=== PATIENT | male | born 1950 | race Caucasian/White ===

== ENCOUNTER 2020-06-01 20:58 | Emergency (ER) | payer OTHER, MEDICARE, SELFPAY ==
[2020-06-01] VITALS (9 sets, daily range): BP systolic 160–193; BP diastolic 67–112; PULSE 74–122; RESP 13–25; TEMP 37.2; O2SAT 15–100; BMI 31.0
--- NOTE | 2020-06-01 20:59 | CTR_ITS ---
PROCEDURE INFORMATION: Exam: CT Head Without Contrast Exam date and time: 06/01/2020 9:14 PM Age: 69 years old Clinical indication: Injury or trauma; Fall; Initial encounter; Blunt trauma (contusions or hematomas); Consciousness not specified; Injury date: 06/01/2020; Injury details: A known carbon dioxide poison, PT was working on tractor when he fell and hit his head, could not move, found him vomiting; Additional info: AMS TECHNIQUE: Imaging protocol: Computed tomography of the head without contrast. Radiation optimization: All CT scans at this facility use at least one of these dose optimization techniques: automated exposure control; mA and/or kV adjustment per patient size (includes targeted exams where dose is matched to clinical indication); or iterative reconstruction. COMPARISON: No relevant prior studies available. RADIATION DOSE METRICS: Total DLP (mGy-cm): 1650.53 FINDINGS: Brain: Normal. No hemorrhage. Unremarkable white matter. No mass effect. Ventricles: Normal. No ventriculomegaly. Bones/joints: Unremarkable. No acute fracture. Sinuses: Visualized sinuses are unremarkable. No fluid levels. Mastoid air cells: Visualized mastoid air cells are well aerated. Soft tissues: Unremarkable. CT/CT head wo con* [id number] IMPRESSION: Negative for intracranial hemorrhage or mass effect. Radiation Dose CTDIVOL = (mGy): DLP = 1650.53 (mGy-cm)
--- NOTE | 2020-06-01 20:59 | CTR_ITS ---
PROCEDURE INFORMATION: Exam: CT Cervical Spine Without Contrast Exam date and time: 06/01/2020 9:14 PM Age: 69 years old Clinical indication: Injury or trauma; Fall; Initial encounter; Blunt trauma; Injury date: 06/01/20; Injury details: A known carbon dioxide poison, PT was working on tractor when he fell and hit his head, could not move, found him vomiting; Additional info: Pain TECHNIQUE: Imaging protocol: Computed tomography images of the cervical spine without contrast. Radiation optimization: All CT scans at this facility use at least one of these dose optimization techniques: automated exposure control; mA and/or kV adjustment per patient size (includes targeted exams where dose is matched to clinical indication); or iterative reconstruction. COMPARISON: No relevant prior studies available. RADIATION DOSE METRICS: Total DLP (mGy-cm): 803.08 FINDINGS: Vertebrae: No acute fracture. Normal alignment. C2-C3: No significant disc protrusion. No severe spinal canal stenosis. No significant neural foraminal narrowing. C3-C4: No significant disc protrusion. No severe spinal canal stenosis. No significant neural foraminal narrowing. C4-C5: No significant disc protrusion. No severe spinal canal stenosis. No significant neural foraminal narrowing. C5-C6: No significant disc protrusion. No severe spinal canal stenosis. No significant neural foraminal narrowing. C6-C7: No significant disc protrusion. No severe spinal canal stenosis. No significant neural foraminal narrowing. C7-T1: No significant disc protrusion. No severe spinal canal stenosis. No significant neural foraminal narrowing. Soft tissues: Unremarkable. Lungs: Lung apices are normal. CT/CT cervical spin wo con* [id number] IMPRESSION: Negative for fracture or dislocation. Radiation Dose CTDIVOL = (mGy): DLP = 803.08 (mGy-cm)
--- NOTE | 2020-06-01 20:59 | XRR_ITS ---
PROCEDURE INFORMATION: Exam: XR Chest, 1 View Exam date and time: 06/01/2020 9:16 PM Age: 69 years old Clinical indication: Other: Dizziness, vomiting poss carbon monoxide poison; Patient HX: Poss carbon monoxide poison. Ams/dizziness/vomiting TECHNIQUE: Imaging protocol: XR of the chest Views: 1 view. COMPARISON: No relevant prior studies available. FINDINGS: Lungs: Low lung volumes. Interstitial crowding versus underlying interstitial thickening on a chronic basis. Minor opacities of the lower lungs. Pleural space: Unremarkable. No pleural effusion. No pneumothorax. Heart/Mediastinum: Accentuation of the cardiac silhouette which could be in part on the basis of AP technique. Bones/joints: Degenerative change of thoracic spine. XR/XR chest 1V portable [id number] IMPRESSION: 1. Accentuation of the interstitium which could be on the basis of crowding, chronic component of interstitial thickening or less likely vascular congestion. 2. Areas of atelectasis or scarring versus pneumonitis lower lungs.
[2020-06-01] MEDS: sodium chloride 0.9% 1,000 ML 100 ML IV (21:00)
--- NOTE | 2020-06-01 21:00 | ECG_ITS ---
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 Measurements Intervals [place] Rate: 80 P: 42 AK: 130 QRS: -30 QRSD: 92 T: 23 QT: 372 QTc: 430 Interpretive Statements SINUS RHYTHM WITH SINUS ARRHYTHMIA BORDERLINE LEFT AXIS DEVIATION [QRS AXIS < -20] No previous ECG available for comparison Electronically Signed On 06-02-2020 16:25:48 CDT by Jourdan Lopez M.D. [id number]
[2020-06-01 21:11] LABS: ABG PCO2 29.4 mmHg (35-45); ABG PH Result 7.47 (7.35-7.45); Arterial Blood Gas Hematocrit 42.7 % (42-52); Base Excess ABG -1.4 mmol/L (-2.0-2.0); Blood Gas Allen Test Pos; Blood Gas Sample Site Radial, right; Blood Gas Sample Type Arterial; Carboxyhemoglobin 32.3 %THgb (0.4-20.1); HCO3 ABG 21.2 mmol/L (22-26); HGB O2 Sat 67.9 % (95-100); Ionized Calcium Level - ABG 1.2 mmol/L (1.1-1.4); Methemoglobin 0.6 % (0.4-1.5); Oxygen Device NRB; Potassium Level - ABG 3.8 mmol/L (3.5-5.0); Total Hemoglobin 13.9 g/dL (14-18)
--- NOTE | 2020-06-01 21:22 | W.ED.GENADLT ---
HPI - General Adult General: Chief complaint: General Medical Stated complaint: Poss Carbon Monoxide Poison Time Seen by Provider: 06/01/20 20:59 Source: patient, family and EMS Mode of arrival: EMS Limitations: altered mental status History of Present Illness: HPI narrative: Jose is a 69-year-old male brought in by EMS with report of altered mental status. The patient by report called his stating he felt dizzy and nauseated while he was in his garage working on a tractor. His found him altered and apparently had been vomiting. It is believed that he was working on the tractor while it was running in an enclosed space for approximately 2 hours. EMS reports a GCS of 12. In route they were unable to establish an IV but did get a normal blood sugar and placed him on 2 L of nasal cannula oxygen. Review of Systems General: Reports: ROS unobtainable due to medical condition [facility] ED PFSH: Medical History (Updated 06/02/20 @ 00:08 by Alexa Ledesma) No pertinent past medical history Physical Exam Const: EXAM LIMITATIONS: altered mental status and other limitations GENERAL APPEARANCE: lethargic ORIENTATION/CONSCIOUSNESS: Yes lethargic HENMT: COMMON NORMALS: normocephalic, atraumatic, external ears normal, EAC's normal and Normal external nose present HEAD & SCALP: normal to inspection, normocephalic and atraumatic FACE & SINUS: normal facial exam and face symmetric NOSE: Normal external nose present and Normal nares present EXTERNAL EAR: Yes external ears normal EXTERNAL AUDITORY CANAL: EAC's normal MOUTH: Normal oral and palatal mucosa present, lip normal and tongue normal Eye: COMMON NORMALS: Equal, round and reactive pupils present and conjunctivae normal GENERAL EYE: appearance normal, both eyes and all related structures ALIGNMENT: Yes alignment normal PERIORBITAL: periorbital findings normal EYELID: eyelids normal CONJUNCTIVA: Yes conjunctivae normal SCLERA: sclerae normal PUPIL: Yes Equal, round and reactive pupils present Neck/C-Spine: COMMON NORMALS: full ROM, no lymphadenopathy, supple, no meningeal signs and no JVD GENERAL: Yes normal visual inspection and Yes trachea midline Chest: COMMONS NORMALS: normal inspection of the chest and normal palpation of entire chest wall Resp: EFFORT & INSPECTION: Yes uses accessory muscles AUSCULTATION: no crackles, no rales, no rhonchi, wheezes and diminished lung sounds Cardio: COMMON NORMALS: no JVD, regular rate, regular rhythm, S1 normal heart sound present and S2 normal heart sound present RATE: regular rate RHYTHM: regular rhythm HEART SOUNDS: S1 normal heart sound present, S2 normal heart sound present, no click, no gallops, no murmurs, no rubs and abnormal split S2 GI: COMMON NORMALS: Soft to palpation and No hepatosplenomegaly present PALPATION: Yes Soft to palpation, No Tenderness to palpation present (GI), No Guarding due to palpation present (GI), No Rigid due to palpation, Yes No hepatosplenomegaly present, No Hernia present, No Palpable mass present and No Pulsatile mass present : COMMON NORMALS: Yes no CVA tenderness BLADDER/KIDNEY EXAM: Yes no CVA tenderness Back/Pelvis: COMMON NORMALS: no CVA tenderness, thoracic and lumbar spine normal to inspection, no thoracic nor lumbar tenderness and thoraco-lumbar ROM normal Extremity: COMMON NORMALS: normal to inspection, full ROM, capillary refill normal, no joint enlargement, no clubbing, cyanosis or edema and no calf tenderness Neuro: MARY COMA SCALE: document GCS findings Mary coma scale eye opening: To pressure [place] coma scale verbal response: Confused Mary coma scale motor response: Localising [place] coma scale total score: 11 COMMON NORMALS: moves all extremities, no focal motor deficits and no sensory deficits noted SENSORIUM/ORIENTATION: Yes lethargic MENINGEAL SIGNS: Yes no meningeal signs Skin: COMMON NORMALS: no rashes or lesions noted, turgor normal, no jaundice, no petechiae and no mottling GENERAL SKIN EXAM: no rashes or lesions noted and turgor normal Course ED course: 2119 -[facility] who has hyperbaric oxygen treatment capability in [place] is on forced open and not taking transfers. 2130 -Case reviewed with [facility] and they do have the capability of treating a patient with carbon monoxide toxicity with hyperbaric oxygen. They will call back with the estimate clerk shortly for acceptance. 2139 - has called back and stated they cannot take the patient at this time as they have no critical care beds available. We will try [facility] in [place]. 2144 -[facility] has called back and states that we should try [facility] in [place] as they are closest other hospital that does hyperbaric oxygen therapy. 2152 -Case reviewed with Dr. Henry, on-call for pulmonology here. He confirms we do not have the capability of doing hyperbaric oxygen therapy. He states that the patient is improving, he is improving at this time, he recommends high flow nasal cannula oxygen at 100% and to hold off intubation. 2212 -patient is clinically improved. GCS is 14-15. Vital signs are stable. He is about to be placed on the high flow nasal cannula. is reviewing his information and we are working on transfer. 2229 -[facility] has turned us down for transfer. [facility] is going to transfer the patient and is sending a fixed wing to do so. At this time we are still awaiting 's official acceptance of the patient. 2352 -Case reviewed with Dr. Vazquez at [facility]. He is going to review the case again with the hyperbaric oxygen doctor. He believes they will will go ahead and accept the patient in transfer. [facility] is here at the ready to take the patient as soon as we have a formal accepting physician. 0003 -Case was again discussed with Dr. Vazquez. He has discussed the case with Dr. Mcdaniel and they will accept the patient at [facility]. Clinically the patient is stable vital signs, he has no pain. He denies any other complaints or injuries. His GCS is 14 taking 1 point off for confusion. His repeat lactate and blood gas are improved. Vital Signs: Vital signs: Vital Signs Temperature 98.9 F 06/01/20 21:09 Pulse Rate 81 06/01/20 23:53 Respiratory Rate 22 H 06/01/20 23:53 Blood Pressure 193/77 06/01/20 23:53 Pulse Oximetry 100 06/01/20 23:53 MDM - General Adult MDM Narrative: Medical decision making narrative: Jose is a 69-year-old male who had accidental carbon oxide poisoning. At this time he is greatly improved his GCS is up to 14 as he came in as an 11. He is going for hyperbaric oxygen therapy as his CO2 is greater than 25. The closest available hyperbaric oxygen therapy at this time is at [facility]. [facility] is here in order to take the patient. There is no evidence of cyanide toxicity and we cannot get a cyanide level here before the patient transfers. There is no other sign of trauma his head CT and C-spine CT are negative. Lab Data: Attestation: I reviewed the patient's lab results. Labs: Lab Results 06/01/20 06/01/20 06/01/20 Range/Units 21:00 21:03 21:03 WBC 10.3 H (4.0-10.0) 10^3/ uL RBC 4.58 (4.1-5.3) 10^6/u L Hgb 14.5 (11.7-16.6) g/dL Hct 43.5 (42.0-52.0) % MCV 95.0 H (80-94) fL MCH 31.7 (28.0-34.0) pg MCHC 33.3 (30.0-36.0) g/dL RDW 13.0 (12.1-15.1) % Plt Count 286 (130-400) 10^3/c mm MPV 11.2 H (7.4-10.4) fL Neut % (Auto) 63.6 % Lymph % (Auto) 25.4 % Grady % (Auto) 8.6 % Eos % (Auto) 1.3 % Baso % (Auto) 0.7 % Neut # (Auto) 6.55 (1.8-7.7) 10^3/u L Lymph # (Auto) 2.6 (0.8-4.8) 10^3/u L Grady # (Auto) 0.9 (0.2-0.9) 10^3/u L Eos # (Auto) 0.1 (0.0-0.8) 10^3/u L Baso # (Auto) 0.1 (0.0-0.1) 10^3/u L Nucleated RBC % (a uto) 0 % Nucleated RBCs # 0.0 /100WBC PT 12.80 (10.5-13.3) SECO NDS INR 0.93 (0.8-1.2) Specimen Type Arterial Sample Site Radial, right ABG pH 7.47 H (7.35-7.45) ABG pCO2 29.4 L (35-45) mmHg ABG pO2 321.0 H* (80.0-100.0) mmH g ABG HCO3 21.2 L (22-26) mmol/L ABG Base Excess -1.4 (-2.0-2.0) mmol/ L Octaviano Test Pos A-a O2 Gradient 0.0 L (5-10) mmHg Hematocrit 42.7 (42-52) % Hgb O2 Saturation 67.9 L (95-100) % Carboxyhemoglobin 32.3 H (0.4-20.1) %THgb Methemoglobin 0.6 (0.4-1.5) % Total Hemoglobin 13.9 L (14-18) g/dL Sodium 141.0 (131-143) mmol/L Potassium 3.8 (3.5-5.0) mmol/L Glucose 189.0 H (70-115) mg/dL Ionized Calcium 1.2 (1.1-1.4) mmol/L O2 Delivery Device Nrb O2 Liters/Min 15.0 % FiO2 % Associate Programmer Analyst ID [email or web address] Chloride (98-107) mmol/L Carbon Dioxide (22-29) mmol/L Anion Gap (5-19) BUN (8-23) mg/dL Creatinine (0.7-1.2) mg/dL GFR Calculation (90-130) mL/min Calculated Osmolal ity (285-295) mOsm/k g Lactic Acid (0.5-2.2) mmol/L Lactic Acid (Sepsi s) (0.5-2.2) mmol/L Calcium (8.5-10.5) mg/dL Magnesium (1.7-2.3) mg/dL Total Bilirubin (0.15-1.2) mg/dL AST (0-40) U/L ALT (0-41) U/L Alkaline Phosphata se (40-130) IU/L Ammonia (16-60) umol/L Creatine Kinase (39-308) U/L Troponin T Baselin e (0-15) ng/L Troponin T 120 Min [place] (0-15) ng/L Delta Troponin T (0-10) ABS# Total Protein (6.6-8.7) g/dL Albumin (3.5-5.2) g/dL Globulin (1.3-4.6) g/dL Urine Color (Yellow) Urine Appearance (CLEAR) Urine pH (5-7) Ur Specific Gravit y (1.005-1.030) Urine Protein (Negative) Urine Glucose (UA) (Normal) Urine Ketones (Negative) Urine Blood (Negative) Urine Nitrate (Negative) Urine Bilirubin (NEGATIVE) Urine Urobilinogen (Negative) mg/dL Ur Leukocyte Brit ase (Negative) Urine RBC (0-2) /hpf Urine WBC (0-5) /hpf Ur Squamous Epith Cells (0-5) Urine Bacteria (NONE) Urine Opiates Scre en (Negative) ng/mL Ur Barbiturates Sc reen (Negative) ng/mL Ur Phencyclidine S crn (Negative) ng/mL Ur Amphetamines Sc reen (Negative) ng/mL U Benzodiazepines Scrn (Negative) ng/mL Urine Cocaine Scre en (Negative) ng/mL U Marijuana (THC) Screen (Negative) ng/mL Ethyl Alcohol (0-10) mg/dL 06/01/20 06/01/20 06/01/20 Range/Units 21:03 21:03 21:03 WBC (4.0-10.0) 10^3/ uL RBC (4.1-5.3) 10^6/u L Hgb (11.7-16.6) g/dL Hct (42.0-52.0) % MCV (80-94) fL MCH (28.0-34.0) pg MCHC (30.0-36.0) g/dL RDW (12.1-15.1) % Plt Count (130-400) 10^3/c mm MPV (7.4-10.4) fL Neut % (Auto) % Lymph % (Auto) % Grady % (Auto) % Eos % (Auto) % Baso % (Auto) % Neut # (Auto) (1.8-7.7) 10^3/u L Lymph # (Auto) (0.8-4.8) 10^3/u L Grady # (Auto) (0.2-0.9) 10^3/u L Eos # (Auto) (0.0-0.8) 10^3/u L Baso # (Auto) (0.0-0.1) 10^3/u L Nucleated RBC % (a uto) % Nucleated RBCs # /100WBC PT (10.5-13.3) SECO NDS INR (0.8-1.2) Specimen Type Sample Site ABG pH (7.35-7.45) ABG pCO2 (35-45) mmHg ABG pO2 (80.0-100.0) mmH g ABG HCO3 (22-26) mmol/L ABG Base Excess (-2.0-2.0) mmol/ L Octaviano Test A-a O2 Gradient (5-10) mmHg Hematocrit (42-52) % Hgb O2 Saturation (95-100) % Carboxyhemoglobin (0.4-20.1) %THgb Methemoglobin (0.4-1.5) % Total Hemoglobin (14-18) g/dL Sodium 139 (131-143) mmol/L Potassium 4.0 (3.5-5.0) mmol/L Glucose 157 H (70-115) mg/dL Ionized Calcium (1.1-1.4) mmol/L O2 Delivery Device O2 Liters/Min % FiO2 % Associate Programmer Analyst ID [email or web address] 104 (98-107) mmol/L Carbon Dioxide 22 (22-29) mmol/L Anion Gap 17.0 (5-19) BUN 12 (8-23) mg/dL Creatinine 1.3 H (0.7-1.2) mg/dL GFR Calculation 54.7 L (90-130) mL/min Calculated Osmolal ity 287 (285-295) mOsm/k g Lactic Acid 2.5 H (0.5-2.2) mmol/L Lactic Acid (Sepsi s) (0.5-2.2) mmol/L Calcium 9.3 (8.5-10.5) mg/dL Magnesium 2.0 (1.7-2.3) mg/dL Total Bilirubin 0.5 (0.15-1.2) mg/dL AST 18 (0-40) U/L ALT 13 (0-41) U/L Alkaline Phosphata se 113 (40-130) IU/L Ammonia (16-60) umol/L Creatine Kinase 152 (39-308) U/L Troponin T Baselin e 6 (0-15) ng/L Troponin T 120 Min [place] (0-15) ng/L Delta Troponin T (0-10) ABS# Total Protein 7.4 (6.6-8.7) g/dL Albumin 4.4 (3.5-5.2) g/dL Globulin 3.0 (1.3-4.6) g/dL Urine Color (Yellow) Urine Appearance (CLEAR) Urine pH (5-7) Ur Specific Gravit y (1.005-1.030) Urine Protein (Negative) Urine Glucose (UA) (Normal) Urine Ketones (Negative) Urine Blood (Negative) Urine Nitrate (Negative) Urine Bilirubin (NEGATIVE) Urine Urobilinogen (Negative) mg/dL Ur Leukocyte Brit ase (Negative) Urine RBC (0-2) /hpf Urine WBC (0-5) /hpf Ur Squamous Epith Cells (0-5) Urine Bacteria (NONE) Urine Opiates Scre en (Negative) ng/mL Ur Barbiturates Sc reen (Negative) ng/mL Ur Phencyclidine S crn (Negative) ng/mL Ur Amphetamines Sc reen (Negative) ng/mL U Benzodiazepines Scrn (Negative) ng/mL Urine Cocaine Scre en (Negative) ng/mL U Marijuana (THC) Screen (Negative) ng/mL Ethyl Alcohol < 10 (0-10) mg/dL 06/01/20 06/01/20 06/01/20 Range/Units 21:03 23:07 23:07 WBC (4.0-10.0) 10^3/ uL RBC (4.1-5.3) 10^6/u L Hgb (11.7-16.6) g/dL Hct (42.0-52.0) % MCV (80-94) fL MCH (28.0-34.0) pg MCHC (30.0-36.0) g/dL RDW (12.1-15.1) % Plt Count (130-400) 10^3/c mm MPV (7.4-10.4) fL Neut % (Auto) % Lymph % (Auto) % Grady % (Auto) % Eos % (Auto) % Baso % (Auto) % Neut # (Auto) (1.8-7.7) 10^3/u L Lymph # (Auto) (0.8-4.8) 10^3/u L Grady # (Auto) (0.2-0.9) 10^3/u L Eos # (Auto) (0.0-0.8) 10^3/u L Baso # (Auto) (0.0-0.1) 10^3/u L Nucleated RBC % (a uto) % Nucleated RBCs # /100WBC PT (10.5-13.3) SECO NDS INR (0.8-1.2) Specimen Type Sample Site ABG pH (7.35-7.45) ABG pCO2 (35-45) mmHg ABG pO2 (80.0-100.0) mmH g ABG HCO3 (22-26) mmol/L ABG Base Excess (-2.0-2.0) mmol/ L Octaviano Test A-a O2 Gradient (5-10) mmHg Hematocrit (42-52) % Hgb O2 Saturation (95-100) % Carboxyhemoglobin (0.4-20.1) %THgb Methemoglobin (0.4-1.5) % Total Hemoglobin (14-18) g/dL Sodium (131-143) mmol/L Potassium (3.5-5.0) mmol/L Glucose (70-115) mg/dL Ionized Calcium (1.1-1.4) mmol/L O2 Delivery Device O2 Liters/Min % FiO2 % Associate Programmer Analyst ID Chloride (98-107) mmol/L Carbon Dioxide (22-29) mmol/L Anion Gap (5-19) BUN (8-23) mg/dL Creatinine (0.7-1.2) mg/dL GFR Calculation (90-130) mL/min Calculated Osmolal ity (285-295) mOsm/k g Lactic Acid (0.5-2.2) mmol/L Lactic Acid (Sepsi s) 1.4 (0.5-2.2) mmol/L Calcium (8.5-10.5) mg/dL Magnesium (1.7-2.3) mg/dL Total Bilirubin (0.15-1.2) mg/dL AST (0-40) U/L ALT (0-41) U/L Alkaline Phosphata se (40-130) IU/L Ammonia 65 H (16-60) umol/L Creatine Kinase (39-308) U/L Troponin T Baselin e (0-15) ng/L Troponin T 120 Min [place] 6.00 (0-15) ng/L Delta Troponin T 0 (0-10) ABS# Total Protein (6.6-8.7) g/dL Albumin (3.5-5.2) g/dL Globulin (1.3-4.6) g/dL Urine Color (Yellow) Urine Appearance (CLEAR) Urine pH (5-7) Ur Specific Gravit y (1.005-1.030) Urine Protein (Negative) Urine Glucose (UA) (Normal) Urine Ketones (Negative) Urine Blood (Negative) Urine Nitrate (Negative) Urine Bilirubin (NEGATIVE) Urine Urobilinogen (Negative) mg/dL Ur Leukocyte Brit ase (Negative) Urine RBC (0-2) /hpf Urine WBC (0-5) /hpf Ur Squamous Epith Cells (0-5) Urine Bacteria (NONE) Urine Opiates Scre en (Negative) ng/mL Ur Barbiturates Sc reen (Negative) ng/mL Ur Phencyclidine S crn (Negative) ng/mL Ur Amphetamines Sc reen (Negative) ng/mL U Benzodiazepines Scrn (Negative) ng/mL Urine Cocaine Scre en (Negative) ng/mL U Marijuana (THC) Screen (Negative) ng/mL Ethyl Alcohol (0-10) mg/dL 06/01/20 06/01/20 06/01/20 Range/Units 23:20 23:27 23:40 WBC (4.0-10.0) 10^3/ uL RBC (4.1-5.3) 10^6/u L Hgb (11.7-16.6) g/dL Hct (42.0-52.0) % MCV (80-94) fL MCH (28.0-34.0) pg MCHC (30.0-36.0) g/dL RDW (12.1-15.1) % Plt Count (130-400) 10^3/c mm MPV (7.4-10.4) fL Neut % (Auto) % Lymph % (Auto) % Grady % (Auto) % Eos % (Auto) % Baso % (Auto) % Neut # (Auto) (1.8-7.7) 10^3/u L Lymph # (Auto) (0.8-4.8) 10^3/u L Grady # (Auto) (0.2-0.9) 10^3/u L Eos # (Auto) (0.0-0.8) 10^3/u L Baso # (Auto) (0.0-0.1) 10^3/u L Nucleated RBC % (a uto) % Nucleated RBCs # /100WBC PT (10.5-13.3) SECO NDS INR (0.8-1.2) Specimen Type Arterial Sample Site Radial, right ABG pH 7.42 (7.35-7.45) ABG pCO2 35.9 (35-45) mmHg ABG pO2 534.0 H* (80.0-100.0) mmH g ABG HCO3 23.3 (22-26) mmol/L ABG Base Excess -0.8 (-2.0-2.0) mmol/ L Octaviano Test Pos A-a O2 Gradient 117.7 H (5-10) mmHg Hematocrit 43.1 (42-52) % Hgb O2 Saturation 93.5 L (95-100) % Carboxyhemoglobin 6.3 (0.4-20.1) %THgb Methemoglobin 0.9 (0.4-1.5) % Total Hemoglobin 14.0 (14-18) g/dL Sodium 141.0 (131-143) mmol/L Potassium 4.2 (3.5-5.0) mmol/L Glucose 133.0 H (70-115) mg/dL Ionized Calcium 1.2 (1.1-1.4) mmol/L O2 Delivery Device O2 Liters/Min 70.0 % FiO2 100.0 % Associate Programmer Analyst ID [email or web address] Chloride (98-107) mmol/L Carbon Dioxide (22-29) mmol/L Anion Gap (5-19) BUN (8-23) mg/dL Creatinine (0.7-1.2) mg/dL GFR Calculation (90-130) mL/min Calculated Osmolal ity (285-295) mOsm/k g Lactic Acid 1.4 (0.5-2.2) mmol/L Lactic Acid (Sepsi s) (0.5-2.2) mmol/L Calcium (8.5-10.5) mg/dL Magnesium (1.7-2.3) mg/dL Total Bilirubin (0.15-1.2) mg/dL AST (0-40) U/L ALT (0-41) U/L Alkaline Phosphata se (40-130) IU/L Ammonia (16-60) umol/L Creatine Kinase (39-308) U/L Troponin T Baselin e (0-15) ng/L Troponin T 120 Min [place] (0-15) ng/L Delta Troponin T (0-10) ABS# Total Protein (6.6-8.7) g/dL Albumin (3.5-5.2) g/dL Globulin (1.3-4.6) g/dL Urine Color Yellow (Yellow) Urine Appearance Clear (CLEAR) Urine pH 7 (5-7) Ur Specific Gravit y 1.010 (1.005-1.030) Urine Protein Neg (Negative) Urine Glucose (UA) Norm (Normal) Urine Ketones Negative (Negative) Urine Blood Neg (Negative) Urine Nitrate Negative (Negative) Urine Bilirubin Neg (NEGATIVE) Urine Urobilinogen Norm (Negative) mg/dL Ur Leukocyte Brit ase Negative (Negative) Urine RBC None (0-2) /hpf Urine WBC None (0-5) /hpf Ur Squamous Epith Cells None (0-5) Urine Bacteria None (NONE) Urine Opiates Scre en (Negative) ng/mL Ur Barbiturates Sc reen (Negative) ng/mL Ur Phencyclidine S crn (Negative) ng/mL Ur Amphetamines Sc reen (Negative) ng/mL U Benzodiazepines Scrn (Negative) ng/mL Urine Cocaine Scre en (Negative) ng/mL U Marijuana (THC) Screen (Negative) ng/mL Ethyl Alcohol (0-10) mg/dL 06/01/20 Range/Units 23:40 WBC (4.0-10.0) 10^3/ uL RBC (4.1-5.3) 10^6/u L Hgb (11.7-16.6) g/dL Hct (42.0-52.0) % MCV (80-94) fL MCH (28.0-34.0) pg MCHC (30.0-36.0) g/dL RDW (12.1-15.1) % Plt Count (130-400) 10^3/c mm MPV (7.4-10.4) fL Neut % (Auto) % Lymph % (Auto) % Grady % (Auto) % Eos % (Auto) % Baso % (Auto) % Neut # (Auto) (1.8-7.7) 10^3/u L Lymph # (Auto) (0.8-4.8) 10^3/u L Grady # (Auto) (0.2-0.9) 10^3/u L Eos # (Auto) (0.0-0.8) 10^3/u L Baso # (Auto) (0.0-0.1) 10^3/u L Nucleated RBC % (a uto) % Nucleated RBCs # /100WBC PT (10.5-13.3) SECO NDS INR (0.8-1.2) Specimen Type Sample Site ABG pH (7.35-7.45) ABG pCO2 (35-45) mmHg ABG pO2 (80.0-100.0) mmH g ABG HCO3 (22-26) mmol/L ABG Base Excess (-2.0-2.0) mmol/ L Octaviano Test A-a O2 Gradient (5-10) mmHg Hematocrit (42-52) % Hgb O2 Saturation (95-100) % Carboxyhemoglobin (0.4-20.1) %THgb Methemoglobin (0.4-1.5) % Total Hemoglobin (14-18) g/dL Sodium (131-143) mmol/L Potassium (3.5-5.0) mmol/L Glucose (70-115) mg/dL Ionized Calcium (1.1-1.4) mmol/L O2 Delivery Device O2 Liters/Min % FiO2 % Associate Programmer Analyst ID Chloride (98-107) mmol/L Carbon Dioxide (22-29) mmol/L Anion Gap (5-19) BUN (8-23) mg/dL Creatinine (0.7-1.2) mg/dL GFR Calculation (90-130) mL/min Calculated Osmolal ity (285-295) mOsm/k g Lactic Acid (0.5-2.2) mmol/L Lactic Acid (Sepsi s) (0.5-2.2) mmol/L Calcium (8.5-10.5) mg/dL Magnesium (1.7-2.3) mg/dL Total Bilirubin (0.15-1.2) mg/dL AST (0-40) U/L ALT (0-41) U/L Alkaline Phosphata se (40-130) IU/L Ammonia (16-60) umol/L Creatine Kinase (39-308) U/L Troponin T Baselin e (0-15) ng/L Troponin T 120 Min [place] (0-15) ng/L Delta Troponin T (0-10) ABS# Total Protein (6.6-8.7) g/dL Albumin (3.5-5.2) g/dL Globulin (1.3-4.6) g/dL Urine Color (Yellow) Urine Appearance (CLEAR) Urine pH (5-7) Ur Specific Gravit y (1.005-1.030) Urine Protein (Negative) Urine Glucose (UA) (Normal) Urine Ketones (Negative) Urine Blood (Negative) Urine Nitrate (Negative) Urine Bilirubin (NEGATIVE) Urine Urobilinogen (Negative) mg/dL Ur Leukocyte Brit ase (Negative) Urine RBC (0-2) /hpf Urine WBC (0-5) /hpf Ur Squamous Epith Cells (0-5) Urine Bacteria (NONE) Urine Opiates Scre en Negative (Negative) ng/mL Ur Barbiturates Sc reen Negative (Negative) ng/mL Ur Phencyclidine S crn Negative (Negative) ng/mL Ur Amphetamines Sc reen Negative (Negative) ng/mL U Benzodiazepines Scrn Negative (Negative) ng/mL Urine Cocaine Scre en Negative (Negative) ng/mL U Marijuana (THC) Screen Negative (Negative) ng/mL Ethyl Alcohol (0-10) mg/dL Imaging Data^: CXR: My impression: No acute cardiopulmonary findings. CT Head: Radiologist's impression: [place] [address] CT Scan Report Signed Patient: Jose Diana Unit #: [id number] : [id number] Age/Sex: 69 / M ADM Date: 06/01/20 Loc: ER Room/Bed: Attending Dr: Ordering Provider/Ordering MD: Alexa Ledesma DO Date of Service: 06/01/20 Procedure(s): CT head wo con* [id number] Accession Number(s): [id number] Report Number: [id number] PROCEDURE INFORMATION: Exam: CT Head Without Contrast Exam date and time: 06/01/2020 9:14 PM Age: 69 years old Clinical indication: Injury or trauma; Fall; Initial encounter; Blunt trauma (contusions or hematomas); Consciousness not specified; Injury date: 06/01/2020; Injury details: A known carbon dioxide poison, PT was working on tractor when he fell and hit his head, could not move, found him vomiting; Additional info: AMS TECHNIQUE: Imaging protocol: Computed tomography of the head without contrast. Radiation optimization: All CT scans at this facility use at least one of these dose optimization techniques: automated exposure control; mA and/or kV adjustment per patient size (includes targeted exams where dose is matched to clinical indication); or iterative reconstruction. COMPARISON: No relevant prior studies available. RADIATION DOSE METRICS: Total DLP (mGy-cm): 1650.53 FINDINGS: Brain: Normal. No hemorrhage. Unremarkable white matter. No mass effect. Ventricles: Normal. No ventriculomegaly. Bones/joints: Unremarkable. No acute fracture. Sinuses: Visualized sinuses are unremarkable. No fluid levels. Mastoid air cells: Visualized mastoid air cells are well aerated. Soft tissues: Unremarkable. CT/CT head wo con* [id number] IMPRESSION: Negative for intracranial hemorrhage or mass effect. Radiation Dose CTDIVOL = (mGy): DLP = 1650.53 (mGy-cm) Dictated By: Donal Johnson MD Signed By: Donal Johnson MD Signed Date/Time: 06/01/202137 DD/ 36 CT Cervical Spine: Radiologist's impression: [address] [address] [address] Scan Report Signed Patient: Jose Diana Unit #: [id number] : [id number] Age/Sex: 69 / M ADM Date: 06/01/20 Loc: ER Room/Bed: Attending Dr: Ordering Provider/Ordering MD: Alexa Ledesma DO Date of Service: 06/01/20 Procedure(s): CT cervical spin wo con* [id number] Accession Number(s): [id number] Report Number: [id number] PROCEDURE INFORMATION: Exam: CT Cervical Spine Without Contrast Exam date and time: 06/01/2020 9:14 PM Age: 69 years old Clinical indication: Injury or trauma; Fall; Initial encounter; Blunt trauma; Injury date: 06/01/20; Injury details: A known carbon dioxide poison, PT was working on tractor when he fell and hit his head, could not move, found him vomiting; Additional info: Pain TECHNIQUE: Imaging protocol: Computed tomography images of the cervical spine without contrast. Radiation optimization: All CT scans at this facility use at least one of these dose optimization techniques: automated exposure control; mA and/or kV adjustment per patient size (includes targeted exams where dose is matched to clinical indication); or iterative reconstruction. COMPARISON: No relevant prior studies available. RADIATION DOSE METRICS: Total DLP (mGy-cm): 803.08 FINDINGS: Vertebrae: No acute fracture. Normal alignment. C2-C3: No significant disc protrusion. No severe spinal canal stenosis. No significant neural foraminal narrowing. C3-C4: No significant disc protrusion. No severe spinal canal stenosis. No significant neural foraminal narrowing. C4-C5: No significant disc protrusion. No severe spinal canal stenosis. No significant neural foraminal narrowing. C5-C6: No significant disc protrusion. No severe spinal canal stenosis. No significant neural foraminal narrowing. C6-C7: No significant disc protrusion. No severe spinal canal stenosis. No significant neural foraminal narrowing. C7-T1: No significant disc protrusion. No severe spinal canal stenosis. No significant neural foraminal narrowing. Soft tissues: Unremarkable. Lungs: Lung apices are normal. CT/CT cervical spin wo con* [id number] IMPRESSION: Negative for fracture or dislocation. Radiation Dose CTDIVOL = (mGy): DLP = 803.08 (mGy-cm) Dictated By: Donal Johnson MD Signed By: Doanl Johnson MD Signed Date/Time: 06/01/202138 DD/ 37 EKG Data^: EKG 2: Attestation: I personally reviewed and interpreted this EKG as follows: EKG interpretation date: 06/02/20 EKG interpretation time: 23:33 Interpretation: Normal sinus rhythm at 70 beats a minute, no acute ST-T wave changes. Unchanged from previous. Computer generated interpretation: Cervical Spine CT 06/01/20 20:59 IMPRESSION: Negative for fracture or dislocation. Radiation Dose CTDIVOL = (mGy): DLP = 803.08 (mGy-cm) Head CT 06/01/20 20:59 IMPRESSION: Negative for intracranial hemorrhage or mass effect. Radiation Dose CTDIVOL = (mGy): DLP = 1650.53 (mGy-cm) Discharge Plan Discharge Patient Disposition: Xfer Short-Term Hosp Clinical Impression: Carbon monoxide poisoning Qualifiers: Encounter type: initial encounter Injury intent: accidental or unintentional Qualified Code(s): T58.91XA - Toxic effect of carbon monoxide from unspecified source, accidental (unintentional), initial encounter Condition: Stable Referrals: Jeremi Talavera Jr, MD [Primary Care Provider] - Coding Level of Care Code ED Airplane Flight Attendant Supervisor for Chg Fwd Exam Comprehensive
[2020-06-01 21:23] LABS: Basophils # 0.1 10^3/uL (0.0-0.1); Basophils % 0.7 %; Eosinophils # 0.1 10^3/uL (0.0-0.8); Eosinophils % 1.3 %; Hematocrit 43.5 % (42.0-52.0); Hemoglobin 14.5 g/dL (11.7-16.6); Lymphocytes # 2.6 10^3/uL (0.8-4.8); Lymphocytes % 25.4 %; Mean Corpuscular HGB Conc 33.3 g/dL (30.0-36.0); Mean Corpuscular Hemoglobin 31.7 pg (28.0-34.0); Mean Platelet Volume 11.2 fL (7.4-10.4); Monocytes # 0.9 10^3/uL (0.2-0.9); Monocytes % 8.6 %; Neutrophils # 6.55 10^3/uL (1.8-7.7); Neutrophils % 63.6 %; Nucleated Red Blood Cells % 0 %; Platelet Count 286 10^3/cmm (130-400); Red Blood Count 4.58 10^6/uL (4.1-5.3); White Blood Count 10.3 10^3/uL (4.0-10.0)
[2020-06-01 21:27] LABS: Lactic Sepsis W/Reflex 2.5 mmol/L (0.5-2.2)
[2020-06-01 21:28] LABS: Alanine Aminotransferase 13 U/L (0-41); Albumin Level 4.4 g/dL (3.5-5.2); Alkaline Phosphatase 113 IU/L (40-130); Aspartate Amino Transferase 18 U/L (0-40); Blood Urea Nitrogen 12 mg/dL (8-23); Calcium 9.3 mg/dL (8.5-10.5); Carbon Dioxide 22 mmol/L (22-29); Chloride 104 mmol/L (98-107); Creatine Phosphokinase 152 U/L (39-308); Creatinine Clr Calc Pharmacy 61.0794; Glomerular Filtration Rate 54.7 mL/min (90-130); Glucose 157 mg/dL (65-115); Osmolality Calculated 287 mOsm/kg (285-295); Sodium 139 mmol/L (136-145); Total Bilirubin 0.5 mg/dL (0.15-1.2); Total Protein 7.4 g/dL (6.6-8.7)
[2020-06-01 21:29] LABS: Alcohol Level < 10 mg/dL (0-10)
[2020-06-01 21:30] LABS: Ammonia 65 umol/L (16-60)
[2020-06-01 21:31] LABS: Troponin(5th) Baseline 6 ng/L (0-15)
--- NOTE | 2020-06-01 21:40 | PC.NURSE ---
PT WAS ABLE TO RESPOND TO NURSING STAFF APPROX 5MIN AFTER ARRIVAL TO FACILITY. O2 WAS APPLIED VIA NON-REBREATHER AT THE TIME OF ARRIVAL. PT IS ALERT AND ORIENTED AND ABLE TO ANSWERE ALL QUESTIONS APPROPRIATLY AT THIS TIME. PT HAS NO NEURO DEFFICETS.
--- NOTE | 2020-06-01 21:42 | PC.NURSE ---
IS AT BEDSIDE AND TALKING WITH PT. PT HAS BEEN TO CT AND TOLERATES WELL. PT CONT TO ANSWER ALL QUESTIONS APPROPRIATELY AND MOVES ALL EXTREMITIES, NO NEURO SYMPTOMS NOTED AT THIS TIME. O2 REMAINS ON VIA NON-REBREATHER AT THE MAX O2 CONCENTRATION.
[2020-06-01 22:17] LABS: INR 0.93 (0.8-1.2)
[2020-06-01 22:53] LABS: Reflex Lactate Order REFLEX LACTIC ORDERD
--- NOTE | 2020-06-01 23:00 | ECG_ITS ---
[facility] Test Date: 2020-06-01 Pat Name: Jose Diana Department: Room: Gender: Male Linotyper: : 1950 Requested By: Alexa Garrett Order Number: [id number] Lawrence MD: Jourdan Lopez M.D. Measurements Intervals [place] Rate: 78 P: 63 [place]: 158 QRS: -59 QRSD: 87 T: 54 QT: 379 QTc: 433 Interpretive Statements SINUS RHYTHM LEFT AXIS DEVIATION [QRS AXIS < -30] Compared to ECG 06/01/2020 21:14:27 Sinus arrhythmia no longer present Electronically Signed On 06-02-2020 16:31:36 CDT by Jourdan Lopez M.D. [email or web address] rehabilitation centerLiveBuzzfostoria city hospitalMozzo Analytics/store/OM/[id number]
[2020-06-01 23:28] LABS: Lactic Acid level (Lactate) 1.4 mmol/L (0.5-2.2)
[2020-06-01 23:30] LABS: Troponin 5 2HR Delta 0 ABS# (0-10)
[2020-06-01] MEDS: sodium chloride 0.9% 1,000 ML 999 ML IV (23:32)
[2020-06-01 23:33] LABS: ABG PCO2 35.9 mmHg (35-45); ABG PH Result 7.42 (7.35-7.45); Alveolar-Arterial Oxygen Gradi 117.7 mmHg (5-10); Arterial Blood Gas Hematocrit 43.1 % (42-52); Base Excess ABG -0.8 mmol/L (-2.0-2.0); Blood Gas Allen Test Pos; Blood Gas Sample Site Radial, right; Blood Gas Sample Type Arterial; Carboxyhemoglobin 6.3 %THgb (0.4-20.1); HCO3 ABG 23.3 mmol/L (22-26); HGB O2 Sat 93.5 % (95-100); Ionized Calcium Level - ABG 1.2 mmol/L (1.1-1.4); Methemoglobin 0.9 % (0.4-1.5); Potassium Level - ABG 4.2 mmol/L (3.5-5.0)
[2020-06-01 23:50] LABS: Lactic Sepsis W/Reflex 1.4 mmol/L (0.5-2.2)
[2020-06-02 00:06] LABS: Amphetamines Screen Urine Negative (Negative); Barbiturates Screen Urine Negative (Negative); Benzodiazepines Screen Urine Negative (Negative); Bilirubin Urine Neg (NEGATIVE); Blood Urine Neg (Negative); Cocaine Screen Urine Negative (Negative); Glucose Urine UA Norm (Normal); Ketones Urine Negative (Negative); Leukocyte Esterase Urine Negative (Negative); Nitrate Urine Negative (Negative); Opiate Screen Urine Negative (Negative); PCP Screen Urine Negative (Negative); Protein Urine Neg (Negative); THC Screen Urine Negative (Negative); Urine Appearance Clear (CLEAR); Urine Color Yellow (Yellow); Urobilinogen Urine Norm (Negative); pH Urine 7 (5-7)
== END 2020-06-02 00:46 | disposition short-term general hospital (02) ==
PROVIDERS: Emergency Provider Emergency Medicine; PCP Family Medicine
DX: T58.91XA Toxic effect of carbon monoxide from unspecified source, accidental (unintentional), initial encounter (principal)
CPT/HCPCS: 12345; 36415; 36600; 70450; 71045; 72125; 80051; 80053; 80306; 80307; 81001; 82140; 82550; 82810; 83605; 83735; 83986; 84484; 85025; 85610; 93005; 96360; 96361; 99284; 99291; J7030

== ENCOUNTER 2021-12-16 19:26 | Inpatient (IN) | payer OTHER, MEDICARE, SELFPAY ==
--- NOTE | 2021-12-16 19:26 | W.ED.SOB ---
HPI - SOB/Dyspnea General: Chief Complaint: ER Hold Stated Complaint: sob Time Seen by Provider: 12/16/21 19:26 History of Present Illness: HPI Narrative: Mr Diana is a 71-year-old gentleman without significant past medical history presents to the emergency department due to shortness of breath. The patient himself largely denies specific complaints however perhaps mild increased shortness of breath over the past 5 days. Onset of symptoms was gradual. Course has been worsening. Intensity is now moderate to severe. He did receive a home albuterol treatment with perhaps mild relief. He denies history of asthma or tobaccoism. Denies history of known lung disease. He denies other infectious symptoms, has not had chest pain, has been eating drinking normally, and does not feel that he is more swollen than normal. No other specific changes in health, exacerbating, relieving factors identified. EMS found the patient grunting with increased work of breathing including tachypnea and hypoxemia on room air with oxygen saturation approximately 80%. Additionally family noted that the patient was mildly slow to respond at that time. Patient denies any new neurologic symptoms. Patient has not been vaccinated against Covid. Denies sick contacts. Only other provided history is that the patient does have a history of carbon monoxide poisoning and required hyperbaric oxygen however that was about a year ago. No known CO exposure recently. Onset (ago): day(s) Timing: constant and progressively worsening Severity: moderate Exacerbating factors: exertion Relieving factors: nothing Review of Systems General: Reports: 10 or more systems reviewed and unremarkable except in HPI and below [facility] ED PFSH: Medical History No pertinent past medical history Surgical History No significant past surgical history Social History Smoking and tobacco status: never smoked Physical Exam Const: COMMON NORMALS: patient oriented x3 and alert GENERAL APPEARANCE: cooperative, well developed, in distress (Increased work of breathing, supplemental oxygen in place.) and ill appearing (mildly); not lethargic ORIENTATION/CONSCIOUSNESS: not lethargic HENMT: COMMON NORMALS: normocephalic and atraumatic HEAD & SCALP: normocephalic and atraumatic THROAT: posterior oropharynx normal Eye: COMMON NORMALS: conjunctivae normal CONJUNCTIVA: Yes conjunctivae normal SCLERA: sclerae normal Neck/C-Spine: COMMON NORMALS: supple GENERAL: Yes trachea midline Resp: EFFORT & INSPECTION: Yes able to speak in complete sentences, Yes tachypneic and No stridor AUSCULTATION: no crackles, no rales, rhonchi (mild, at bases) and no wheezes Cardio: COMMON NORMALS: regular rhythm RATE: tachycardic RHYTHM: regular rhythm OTHER: Normal peripheral perfusion. No peripheral edema. GI: COMMON NORMALS: Soft to palpation PALPATION: Yes Soft to palpation and No Tenderness to palpation present (GI) PERCUSSION: normal to percussion Extremity: GENERAL: Yes normal exam except as noted and No edema Neuro: COMMON NORMALS: patient oriented x3, moves all extremities, no focal motor deficits and no sensory deficits noted SENSORIUM/ORIENTATION: Yes alert and No lethargic Psych: COMMON NORMALS: mental status grossly normal and Normal thought process present THOUGHT PROCESS: Normal thought process present Course ED course: - Patient was seen and evaluated by me at bedside - Patient placed on cardiac monitors, IV access obtained - Initial evaluation notable for exam as above, patient has new oxygen requirement and becomes markedly tachypneic and develops moderate to severe respiratory distress when oxygen not present - Labs notable for no leukocytosis. Metabolic panel with evidence of dehydration, other findings consistent with likely COVID-19. Procalcitonin is negative. Covid test is positive. - Imaging notable for Persistent or recurrent fine reticular pulmonary opacity since 06/01/2020. Possible chronic interstitial lung disease, recurrent edema or less likely infection. - Upon serial reexamination after treatment the patient was mildly improved with heated high flow oxygen - Apparently, the patient is adamantly against intubation/mechanical ventilation and also the typically given antiviral - Based on patient history, evaluation, labs, and imaging as interpreted the most likely cause of the patient's condition is COVID-19 - The results of ED evaluation were discussed with the patient including plan for admission due to requirement for level of care not available if discharged to prevent significant worsening/deterioration. - Hospitalist service contacted and agreed admit patient. - Patient was admitted without further deterioration or significant events. Note: Click bubbles or prepopulated quinteros in note writing are used for assistance with data collection and billing and are inherently more limited than narrative and other text portions of this note. Please use narrative for additional clinical history and defer to narrative/free test for any case of contradictory information. If information appears in only free text or click bubble it should be considered present or absent as reported. Please contact note medical writer for clarifications of clinical information or contradictory information. MDM is a brief summary, contradictory or erroneous seeming information should be clarified and full note should be reviewed. Vital Signs: Vital signs: Vital Signs Temperature 98.1 F 12/21/21 20:00 Pulse Rate 75 12/21/21 20:07 Respiratory Rate 20 H 12/21/21 20:01 Blood Pressure 144/82 12/21/21 20:00 Pulse Oximetry 90 12/21/21 20:01 MDM - SOB/Dyspnea Medical Decision Making 71-year-old gentleman presenting with respiratory distress found to have Covid. Patient initially on 15 L nonrebreather and switched to heated high flow oxygen with mild improvement. Patient is critically ill with acute hypoxic respiratory failure secondary to Covid. Patient admitted for further management Medical Records I reviewed the patient's medical records. Lab Data I reviewed the patient's lab results. : 12/21/21 05:51 12/21/21 05:51 Labs/Radiology: Radiology Impressions Chest X-Ray 12/16/21 19:33 IMPRESSION: Persistent or recurrent fine reticular pulmonary opacity since 06/01/2020. Possible chronic interstitial lung disease, recurrent edema or less likely infection. Abdomen/Pelvis CT 12/18/21 18:16 IMPRESSION: 1. Negative for acute abdominopelvic pathology. 2. Nonspecific lower lung ground-glass airspace. 3. No specific cause of hematuria identified. 4. Imaging features can be seen with COVID-19 pneumonia, though are nonspecific and can occur with a variety of infectious and noninfectious processes. (Reference: Josiah) REFERENCES: Josiah Eckert, et al., Radiological Society of [place] Expert Consensus Statement on Reporting Chest CT Findings Related to COVID-19. Endorsed by the Society of Thoracic Radiology, the [place] [employer], and RSNA. Published February 05, 2020. Laboratory Results WBC 5.4 10^3/uL (4.0-10.0) 12/16/21 19:42 RBC 4.42 10^6/uL (4.1-5.3) 12/16/21 19:42 Hgb 13.3 g/dL (11.7-16.6) 12/16/21 19:42 Hct 40.3 % (42.0-52.0) L 12/16/21 19: MCV 91.2 fl (80-94) 12/16/21 19:42 MCH 30.1 pg (28.0-34.0) 12/16/21 19: MCHC 33.0 g/dL (30.0-36.0) 12/16/21 19: RDW 13.2 % (12.1-15.1) 12/16/21 19:42 Plt Count 158 10^3/cmm (130-400) 12/16/21 19: MPV 11.0 fL (7.4-10.4) H 12/16/21 19: Neut % (Auto) 88.1 % 12/16/21 19: Lymph % (Auto) 6.3 % 12/16/21 19: [place] % (Auto) 5.4 % 12/16/21 19: Eos % (Auto) 0.0 % 12/16/21 19: Baso % (Auto) 0.0 % 12/16/21: Neut # (Auto) 4.76 10^3/uL (1.8-7.7) 12/16/21: Lymph # (Auto) 0.3 10^3/uL (0.8-4.8) L 12/16/21 19:42 [place] # (Auto) 0.3 10^3/uL (0.2-0.9) 12/16/21: Eos # (Auto) 0.0 10^3/uL (0.0-0.8) 12/16/21: Baso # (Auto) 0.0 10^3/uL (0.0-0.1) 12/16/21: Nucleated RBC % (auto) 0 % 12/16/21: Nucleated RBCs # 0.0 /100WBC 12/16/21 19: Specimen Type Arterial 12/16/21 20:16 Sample Site Radial, right 12/16/21 20:16 ABG pH 7.47 (7.35-7.45) H 12/16/21 20:16 ABG pCO2 28.7 mmHg (35-45) L 12/16/21 20:16 ABG pO2 58.0 mmHg (80.0-100.0) L 12/16/21 20:16 ABG HCO3 20.9 mmol/L (22-26) L 12/16/21 20:16 ABG Base Excess -1.7 mmol/L (-2.0-2.0) 12/16/21 20:16 Octaviano Test Pos 12/16/21 20:16 Hematocrit 41.3 % (42-52) L 12/16/21 20:16 Hgb O2 Saturation 90.2 % (95-100) L 12/16/21 20:16 Carboxyhemoglobin 0.9 %THgb (0.4-20.1) 12/16/21 20:16 Methemoglobin 0.6 % (0.4-1.5) 12/16/21 20:16 Total Hemoglobin 13.5 g/dL (14-18) L 12/16/21 20:16 O2 Delivery Device Nrb 12/16/21 20:16 O2 Liters/Min 15.0 % 12/16/21 20:16 FiO2 100.0 % 12/16/21 20:16 Finance Professor ID Hensa 12/16/21 20:16 Sodium 132 mmol/L (136-145) L 12/16/21 19:42 Potassium 4.2 mmol/L (3.5-5.1) 12/16/21 19:42 Chloride 100 mmol/L (98-107) 12/16/21 19:42 Carbon Dioxide 17 mmol/L (22-29) L 12/16/21 19:42 Anion Gap 19.2 (5-19) H 12/16/21 19:42 BUN 12 mg/dL (8-23) 12/16/21 19:42 Creatinine 0.9 mg/dL (0.7-1.2) 12/16/21 19:42 GFR Calculation Not Reportable 12/16/21 19:42 Glucose 129 mg/dL (65-115) H 12/16/21 19:42 Calculated Osmolality 275 mOsm/kg (285-295) L 12/16/21 19:42 Calcium 8.2 mg/dL (8.5-10.5) L 12/16/21 19:42 Total Bilirubin 0.4 mg/dL (0.15-1.2) 12/16/21 19:42 AST 52 U/L (0-40) H 12/16/21 19:42 ALT 19 U/L (0-41) 12/16/21 19:42 Alkaline Phosphatase 95 IU/L (40-130) 12/16/21 19:42 Troponin T Baseline 9 ng/L (0-15) 12/16/21 19:42 Troponin T 120 Minute 10.26 ng/L (0-15) 12/16/21 21:45 Delta Troponin T 1.26 ABS# (0-10) 12/16/21 21:45 C-Reactive Protein 53.8 mg/L (0.0-4.9) H 12/16/21 19:42 NT-Pro-B Natriuret Pep 156 pg/mL (0-125) H 12/16/21 19:42 Total Protein 6.7 g/dL (6.6-8.7) 12/16/21 19:42 Albumin 3.3 g/dL (3.5-5.2) L 12/16/21 19:42 Globulin 3.4 g/dL (1.3-4.6) 12/16/21 19:42 Procalcitonin 0.30 ng/mL (0-0.5) 12/16/21 19:42 TSH 1.41 uIU/mL (0.27-4.20) 12/16/21 19:42 Coronavirus 229E (PCR) Not detected (NOT DETECT) 12/16/21 19:30 SARS-CoV-2 (PCR) Detected (NOT DETECT) A 12/16/21 19:30 EKG Data EKG 1: Interpretation: Twelve-lead EKG shows a regular rhythm at a rate of 106. IL interval 109, QRS duration 90, QTc 376. Left axis deviation. Interpretation: Sinus tachycardia. Critical Care Time Critical Care Time: Critical Care Time: Yes Total Critical Care Time: 45 Attestation: Due to a high probability of clinically significant, possibly life threatening deterioration, the patient required my highest level of attention and preparedness to intervene emergently and I personally spent this critical care time directly and personally managing the patient. This critical care time included obtaining a history; examining the patient; pulse oximetry; ordering and review of laboratory and imaging studies; arranging urgent treatment with development of a management plan; evaluation of patient's response to treatment; frequent reassessment; and, discussions with other providers as applicable. It was exclusive of separately billable procedures. Discharge Plan Discharge Patient Disposition: Admitted As Inpatient Admit Provider: Regis Randall Clinical Impression: COVID-19, AMS (altered mental status), Acute respiratory failure with hypoxia Condition: Stable Coding Level of Care Code ED Logistics Manager for Chg Fwd Exam Comprehensive
[2021-12-16 19:27] VITALS: BP 131/85; PULSE 108; RESP 24; TEMP 38.1; O2SAT 5; BMI 42.7
--- NOTE | 2021-12-16 19:33 | XRR_ITS ---
PROCEDURE INFORMATION: Exam: XR Chest Exam date and time: 12/16/2021 7:33 PM Age: 71 years old Clinical indication: Cough and shortness of breath; Additional info: Hypoxia, SOB TECHNIQUE: Imaging protocol: XR of the chest. Views: 1 view. COMPARISON: CR XR chest 1V portable [id number] 06/01/2020 9:05 PM FINDINGS: Lungs: There is bilateral fine reticular opacity in the subpleural aspect of the mid lungs which is similar to 06/01/2020. There is no focal consolidation. Pleural spaces: There is no pleural effusion or pneumothorax. Heart/Mediastinum: Cardiomediastinal contours are unremarkable. Bones/joints: Bones are unremarkable. XR/XR chest 1V portable [id number] IMPRESSION: Persistent or recurrent fine reticular pulmonary opacity since 06/01/2020. Possible chronic interstitial lung disease, recurrent edema or less likely infection.
--- NOTE | 2021-12-16 19:34 | ECG_ITS ---
[facility] Test Date: 2021-12-16 Pat Name: Jose Diana Department: Room: Gender: Male Concrete Block Layer: : 1950 Requested By: Rodríguez Henson Order Number: [id number] Lawrence MD: Pamela Figueroa M.D. Measurements Intervals [place] Rate: 106 P: 2 WI: 109 QRS: -59 QRSD: 90 T: 15 QT: 314 QTc: 418 Interpretive Statements SINUS TACHYCARDIA WITH SHORT WI INTERVAL LEFT AXIS DEVIATION [QRS AXIS < -30] PATTERN CONSISTENT WITH PULMONARY DISEASE Compared to ECG 06/01/2020 23:33:16 Short WI interval now present Sinus rhythm no longer present Electronically Signed On 12-17-2021 10:54:56 FABRIC AND TEXTILE FACTORY WORKER by Pamela Figueroa M.D. [email or web address].[email or web address] luke [facility] [email or web address]/[id number] f
[2021-12-16 20:03] LABS: Hematocrit 40.3 % (42.0-52.0); Hemoglobin 13.3 g/dL (11.7-16.6); Lymphocytes # 0.3 10^3/uL (0.8-4.8); Lymphocytes % 6.3 %; Mean Corpuscular Hemoglobin 30.1 pg (28.0-34.0); Mean Corpuscular Volume 91.2 fl (80-94); Monocytes # 0.3 10^3/uL (0.2-0.9); Monocytes % 5.4 %; Neutrophils # 4.76 10^3/uL (1.8-7.7); Neutrophils % 88.1 %; Nucleated Red Blood Cells % 0 %; Platelet Count 158 10^3/cmm (130-400); Red Blood Count 4.42 10^6/uL (4.1-5.3); Red Cell Distribution Width 13.2 % (12.1-15.1); White Blood Count 5.4 10^3/uL (4.0-10.0)
[2021-12-16 20:09] VITALS: BP 138/71; PULSE 111; RESP 22; O2SAT 94
[2021-12-16 20:30] VITALS: PULSE 110; RESP 55; O2SAT 82
[2021-12-16 20:30] LABS: ABG PCO2 28.7 mmHg (35-45); ABG PH Result 7.47 (7.35-7.45); Arterial Blood Gas Hematocrit 41.3 % (42-52); Base Excess ABG -1.7 mmol/L (-2.0-2.0); Blood Gas Allen Test Pos; Blood Gas Sample Type Arterial; Carboxyhemoglobin 0.9 %THgb (0.4-20.1); HCO3 ABG 20.9 mmol/L (22-26); HGB O2 Sat 90.2 % (95-100); Methemoglobin 0.6 % (0.4-1.5); Total Hemoglobin 13.5 g/dL (14-18)
[2021-12-16] MEDS: sodium chloride 0.9% 500 ML IV (20:30)
[2021-12-16 20:31] LABS: Blood Gas Sample Site Radial, right; Oxygen Device NRB
[2021-12-16 20:36] LABS: Troponin(5th) Baseline 9 ng/L (0-15)
[2021-12-16 20:43] LABS: NT Pro B Type Natriuretic Pept 156 pg/mL (0-125); Thyroid Stimulating Hormone 1.41 uIU/mL (0.27-4.20)
[2021-12-16 20:54] LABS: Alanine Aminotransferase 19 U/L (0-41); Albumin Level 3.3 g/dL (3.5-5.2); Alkaline Phosphatase 95 IU/L (40-130); Aspartate Amino Transferase 52 U/L (0-40); Blood Urea Nitrogen 12 mg/dL (8-23); C Reactive Protein 53.8 mg/L (0.0-4.9); Calcium 8.2 mg/dL (8.5-10.5); Carbon Dioxide 17 mmol/L (22-29); Chloride 100 mmol/L (98-107); Globulin 3.4 g/dL (1.3-4.6); Glucose 129 mg/dL (65-115); Osmolality Calculated 275 mOsm/kg (285-295); Sodium 132 mmol/L (136-145); Total Bilirubin 0.4 mg/dL (0.15-1.2); Total Protein 6.7 g/dL (6.6-8.7)
[2021-12-16 20:55] LABS: Anion Gap 19.2 (5-19); Potassium 4.2 mmol/L (3.5-5.1)
[2021-12-16] MEDS: LORazepam 2 mg/mL INJ 1 mL 0.5 MG IVP (21:21)
--- NOTE | 2021-12-16 21:34 | ECG_ITS ---
[facility] Test Date: 2021-12-17 Pat Name: Jose Diana Department: Room: Gender: Male Box Order Person: : 1950 Requested By: Rodríguez Henson Order Number: [id number] Lawrence MD: Michael Coy M.D. Measurements Intervals [place] Rate: 109 P: 50 [place]: 151 QRS: -50 QRSD: 88 T: 37 QT: 310 QTc: 418 Interpretive Statements SINUS TACHYCARDIA LEFT AXIS DEVIATION [QRS AXIS < -30] Compared to ECG 12/16/2021 19:31:46 Short [place] interval no longer present Electronically Signed On 12-17-2021 17:42:22 HVAC INSTRUCTOR by Michael Coy M.D. [email or web address] Map Productsochsner rush healthEncoverkindred hospital dayton.RatherGather/store/[id number]
[2021-12-16 21:48] LABS: Adenovirus Not Detected (NOT DETECT); Chlamydia Pneumoniae Not Detected (NOT DETECT); Coronavirus 229E,HKU1,NL63,OC4 Not Detected (NOT DETECT); Human Metapneumovirus Not Detected (NOT DETECT); Human Rhinovirus/Enterovirus Not Detected (NOT DETECT); Influenza A Not Detected (NOT DETECT); Influenza A H1 Not Detected (NOT DETECT); Influenza A H1-2009 Not Detected (NOT DETECT); Influenza A H3 Not Detected (NOT DETECT); Influenza B Not Detected (NOT DETECT); Mycoplasma Pneumoniae Not Detected (NOT DETECT); Parainfluenza Virus Type 1 Not Detected (NOT DETECT); Parainfluenza Virus Type 2 Not Detected (NOT DETECT); Parainfluenza Virus Type 3 Not Detected (NOT DETECT); Parainfluenza Virus Type 4 Not Detected (NOT DETECT); Respiratory Syncytial Virus A Not Detected (NOT DETECT); Respiratory Syncytial Virus B Not Detected (NOT DETECT); SARS-COV-2 Detected (NOT DETECT)
[2021-12-16 22:00] VITALS: PULSE 125; RESP 22; O2SAT 85
[2021-12-16 22:17] LABS: Troponin 5 2HR 10.26 ng/L (0-15)
[2021-12-16 22:19] LABS: Troponin 5 2HR Delta 1.26 ABS# (0-10)
[2021-12-16] MEDS: haloperidol inj 5 mg/mL INJ 1 mL 1 MG IVP (22:22)
[2021-12-16 22:23] VITALS: BP 149/101; PULSE 122; RESP 32; TEMP 39.3; O2SAT 90
[2021-12-16] MEDS: LORazepam 2 mg/mL INJ 1 mL IVP (22:56)
--- NOTE | 2021-12-16 23:20 | P.HP_ITS ---
Providers/Chief Complaint Primary Care Provider: Jeremi Talavera Jr, MD Chief Complaint: sob History of Present Illness Jose Diana is a 71 year old male with past medical history of hypothyroidism, came in with chief complaint of worsening shortness of breath, symptoms started this Monday, initially he was complaining of fatigue, with low energy. Today according to the family members he was coughing a lot, it was nonproductive. History was mostly taken by over the phone as the patient is significantly encephalopathic. According to the he is a very healthy person at baseline, very independent, prior to this Monday.Since Monday he has progressively continued to worsen. Upon arrival in the ER he was worked up for above-mentioned complaint: Pertinent imaging studies: X-ray chest: bilateral fine reticular opacity in the subpleural aspect of the mid lungs. Pertinent labs: WBC 5.4 , H&H 13.3 / 40.3 , plt : 158 , serum sodium 132 serum potassium 4.2 BUN serum creatinine 12 and 0.9, serum bicarb 17 CRP 53, proBNP 156 Covid PCR detected ABG: pH 7.47 PCO2 28 PO2 58, on 15 Ls NRM 100% FiO2 Review of Systems General: Reports: ROS unobtainable due to mental status Medications/Allergies Allergies Allergy/AdvReac Type Severity Reaction Status Date / Time No Known Allergies Allergy Verified 06/01/20 21:59 PFSH Acute PFSH: Medical History No pertinent past medical history Surgical History No significant past surgical history Social History Smoking and tobacco status: never smoked Vitals/I&O/Wt Last Vital Signs Temp 102.8 F H 12/16/21 22:23 Pulse 122 H 12/16/21 22:23 Resp 32 H 12/16/21 22:23 BP 149/101 12/16/21 22:23 Pulse Ox 90 12/16/21 22:23 Weight last 48 hrs Weight 131.088 kg Physical Exam Const: COMMON NORMALS: patient oriented x3 HENMT: COMMON NORMALS: normocephalic and atraumatic HEAD & SCALP: normocephalic and atraumatic EXTERNAL EAR: Yes external ears normal Eye: COMMON NORMALS: no scleral icterus GENERAL EYE: appearance normal, both eyes and all related structures Chest: COMMONS NORMALS: normal inspection of the chest and normal palpation of entire chest wall CHEST: Yes Symmetrical chest wall rise Resp: EFFORT & INSPECTION: Yes symmetric chest movement AUSCULTATION: diminished lung sounds OTHER: Tachypneic, use of accessory respiratory muscles. Labored breathing Cardio: COMMON NORMALS: regular rate, regular rhythm, S1 normal heart sound present, S2 normal heart sound present, No gallops present (Cardio), No murmurs present (Cardio), No rub (Cardio) and Peripheral pulses 2+ throughout RATE: regular rate RHYTHM: regular rhythm HEART SOUNDS: S1 normal heart sound present and S2 normal heart sound present PERIPHERAL PULSES: Peripheral pulses 2+ throughout GI: COMMON NORMALS: Normal to inspection, nondistended, normoactive bowel sounds present, Soft to palpation, non-tender, No hepatosplenomegaly present and no masses AUSCULTATION: Yes normoactive bowel sounds PALPATION: Yes Soft to palpation and Yes No hepatosplenomegaly present RECTAL EXAM: Yes deferred Extremity: COMMON NORMALS: no clubbing, cyanosis or edema and no pedal edema Neuro: COMMON NORMALS: patient oriented x3 Data : 12/16/21 19:42 12/16/21 19:42 A&P Assessment and plan (1) AMS (altered mental status): Status: Acute (2) Acute respiratory failure with hypoxia: Status: Acute (3) Hypothyroidism: Status: Acute Plan Assessment: #Acute hypoxic respiratory failure secondary to Covid pneumonia #Acute encephalopathy secondary to hypoxia #Covid pneumonia #Hypothyroidism Plan: Currently patient is on Covid protocol Continue to monitor inflammatory markers (ESR , CRP , D-dimer, LDH , ferritin ) Continue to monitor x-ray chest Continue to monitor ABG Possible CTA chest Dexamethasone 6 mg IV daily for 10 days Empirically patient is on cefepime Continue supplemental oxygen as needed Incentive spirometer flutter valve Duo nebs Advair inhaler Lovenox for DVT prophylaxis Ativan as needed for agitation Morphine as needed for air hunger Family did not want to use remdesivir. Continue levothyroxine #CODE STATUS: Family did not want intubation. They are okay with rest life- saving measures. Attestations Medical Necessity Statement*: Patient is to the hospital for management of respiratory failure secondary to Covid pneumonia. Time Spent in Patient Care: Greater than 35 minutes (>than 50% of time spent in counselling and/or direct pt care on unit) . Critical Care Time: The high probability of a clinically significant, sudden or life threatening deterioration of the patient's [] system(s) required my full and direct attention, intervention and personal management. The critical care time is as shown. This time is in addition to time spent performing any reported procedures but includes the following: [x] Data and vital sign review and interpretation [x] Patient assessment, examination and intervention [x] Documentation [x] Medication orders and management Critical Care Time (min): 45 Coding Level of Care Code Acute Reinforced Steel Placing Supervisor for [facility] Fwd Exam Comprehensive Diagnoses AMS (altered mental status) R41.82 Acute respiratory failure with hypoxia J96.01 Hypothyroidism E03.9
[2021-12-16 23:35] VITALS: PULSE 101; RESP 53; O2SAT 98
[2021-12-16] MEDS: morphine 4 mg/mL SDV 1 mL 1 MG IVP (23:38)
[2021-12-16] MEDS: dexamethasone 4 mg/mL INJ 6 MG IVP (23:41)
[2021-12-16] MEDS: enoxaparin 40 mg/0.4 mL Syringe SUBCUT (23:44)
[2021-12-16] MEDS: cefepime 2,000 MG in sodium chloride 0.9% (plus) 50 ML 100 MG IV (23:56)
[2021-12-17] VITALS (24 sets, daily range): BP systolic 99–117; BP diastolic 51–62; PULSE 54–101; RESP 22–53; O2SAT 85–99
[2021-12-17] MEDS: ipratropium-albuterol 3 mL Neb INHALATION ×5 (00:57→19:39)
[2021-12-17] MEDS: dexmedeTOMIDine 0.9 % NaCL 400 MCG/100 ML PREMIX IV (01:09)
--- NOTE | 2021-12-17 01:34 | ECG_ITS ---
[facility] Test Date: 2021-12-17 Pat Name: Jose Diana Department: Room: Gender: Male Manager Nursing Home: : 1950 Requested By: Rodríguez Henson Order Number: [id number] Lawrence MD: Michael Coy M.D. Measurements Intervals [place] Rate: 60 P: 51 [place]: 179 QRS: -25 QRSD: 91 T: -4 QT: 417 QTc: 419 Interpretive Statements SINUS RHYTHM BORDERLINE LEFT AXIS DEVIATION [QRS AXIS < -20] Compared to ECG 12/17/2021 00:06:28 Sinus tachycardia no longer present Electronically Signed On 12-17-2021 17:42:02 PATHOLOGY LAB TECHNICIAN by Michael Coy M.D. [email or web address] hospital for women and infantsTalentwisesumma health akron campus.Vinja/store/OM/[id number]
[2021-12-17 01:38] LABS: Basophils % 0.1 %; Hematocrit 37.9 % (42.0-52.0); Hemoglobin 12.6 g/dL (11.7-16.6); Lymphocytes # 0.4 10^3/uL (0.8-4.8); Lymphocytes % 5.4 %; Mean Corpuscular HGB Conc 33.2 g/dL (30.0-36.0); Mean Corpuscular Hemoglobin 30.7 pg (28.0-34.0); Mean Corpuscular Volume 92.4 fl (80-94); Mean Platelet Volume 10.9 fL (7.4-10.4); Monocytes # 0.3 10^3/uL (0.2-0.9); Monocytes % 4.5 %; Neutrophils # 6.64 10^3/uL (1.8-7.7); Neutrophils % 89.6 %; Nucleated Red Blood Cells % 0 %; Platelet Count 141 10^3/cmm (130-400); Red Cell Distribution Width 13.3 % (12.1-15.1); White Blood Count 7.4 10^3/uL (4.0-10.0)
[2021-12-17 02:12] LABS: Troponin 5 6HR 11.65 ng/L (0-15)
[2021-12-17 02:22] LABS: Troponin 5 6HR Delta 2.65 ng/L (0-12)
[2021-12-17 02:25] LABS: Alanine Aminotransferase 17 U/L (0-41); Albumin Level 3.2 g/dL (3.5-5.2); Alkaline Phosphatase 99 IU/L (40-130); Anion Gap 15.6 (5-19); Aspartate Amino Transferase 55 U/L (0-40); Blood Urea Nitrogen 11 mg/dL (8-23); Calcium 7.2 mg/dL (8.5-10.5); Carbon Dioxide 20 mmol/L (22-29); Chloride 105 mmol/L (98-107); Globulin 2.3 g/dL (1.3-4.6); Glucose 120 mg/dL (65-115); Osmolality Calculated 283 mOsm/kg (285-295); Potassium 4.6 mmol/L (3.5-5.1); Sodium 136 mmol/L (136-145); Total Bilirubin 0.4 mg/dL (0.15-1.2); Total Protein 5.5 g/dL (6.6-8.7)
--- NOTE | 2021-12-17 07:54 | PC.NURSE ---
PER TRANSMISSION BUILDER NURSE, PROVIDER STATED CAN COME SEE BUT MUST BE GOWNED, MASKED AND ONLY FOR SHORT PERIOD OF TIME.
--- NOTE | 2021-12-17 08:36 | PC.NURSE ---
PATIENT SEDATED UNABLE TO GIVE PO MEDS OR COMPLETE SOME AREAS OF ASSESSMENT.
[2021-12-17] MEDS: dexmedeTOMIDine 0.9 % NaCL 400 MCG/100 ML PREMIX 9.83 MCG IV (09:25)
--- NOTE | 2021-12-17 10:41 | PC.NURSE ---
RESPIRATORY CALLED IN REGARDS TO PATIENTS O2 SATURATION OF 85% ON BIPAP.
[2021-12-17] MEDS: cefepime 2,000 MG in sodium chloride 0.9% (plus) 50 ML 100 MG IV (12:08)
[2021-12-17 13:19] LABS: D Dimer 1.73 ug/mIFEU (0-0.59)
[2021-12-17] MEDS: remdesivir 200 MG in sodium chloride 0.9% (100 ml) 100 ML 100 MG IV (13:33)
[2021-12-17] MEDS: tocilizumab 800 MG in sodium chloride 0.9% (100 ml) 100 ML 100 MG IV (14:34)
--- NOTE | 2021-12-17 17:46 | PC.NURSE ---
PATIENT TOLERATING SEDATION WELL. WHILE NURSE IN THE ROOM, NURSE NOTICED PATIENT FLUTTERING EYE MOVEMENTS AND ABILITY TO SQUEEZE FINGERS. PATIENT LINENS CHANGED AND MARIO CATHETER PLACED. PATIENT READJUSTED AND MADE COMFORTABLE IN BED.
[2021-12-17] MEDS: FUROsemide 10 mg/mL SDV 2mL 20 MG IVP (20:23)
--- NOTE | 2021-12-17 20:54 | P.PN_ITS ---
Subjective Subjective: Interval history: Lethargic, not answering questions or following commands. Vitals/I&O/Wt Last Vital Signs Temp 102.8 F H 12/16/21 22:23 Pulse 68 12/17/21 19:45 Resp 27 H 12/17/21 19:39 BP 117/61 12/17/21 16:25 Pulse Ox 25 L 12/17/21 19:44 12/17/21 12/17/21 12/17/21 06:59 14:59 22:59 Intake Total 115.005 / 115.005 648.422 / 648.422 Output Total 1500 / 1500 Balance 115.005 / 115.005 648.422 / 648.422 -1500 / -851.578 Weight last 48 hrs Weight 131.088 kg Physical Exam Const: GENERAL APPEARANCE: lethargic ORIENTATION/CONSCIOUSNESS: Yes lethargic OTHER: Lethargic. BiPAP HENMT: COMMON NORMALS: oropharynx normal Neck/C-Spine: COMMON NORMALS: no JVD Resp: COMMON NORMALS: normal respiratory effort and clear to auscultation bilaterally AUSCULTATION: clear to auscultation bilaterally Cardio: COMMON NORMALS: no JVD, regular rhythm, S1 normal heart sound present, S2 normal heart sound present and No murmurs present (Cardio) RHYTHM: regular rhythm HEART SOUNDS: S1 normal heart sound present and S2 normal heart sound present GI: COMMON NORMALS: Normal to inspection, nondistended, normoactive bowel sounds present, Soft to palpation and non-tender PALPATION: Yes Soft to palpation Extremity: COMMON NORMALS: no joint enlargement and no pedal edema Neuro: SENSORIUM/ORIENTATION: Yes lethargic Skin: COMMON NORMALS: no rashes or lesions noted GENERAL SKIN EXAM: no rashes or lesions noted Urinary Catheter Management: Garcia: Cath Placed During This Visit: yes Reason for Continuing Indwelling Catheter: Other Urinary Catheter Date of Insertion: 12/17/21 Urinary Catheter Time of Insertion: 17:25 Data : 12/17/21 01:28 12/17/21 01:28 Micro: Microbiology 12/16/21 01:26 Blood Culture - Preliminary Blood SPECIMEN COLLECTED 12/16/21 01:28 Blood Culture - Preliminary Blood SPECIMEN COLLECTED A&P Assessment and plan (1) Acute respiratory failure with hypoxia: Discussed his condition with his family. Today requiring 100% FiO2 with initial improvement down to 65%, then with worsening again to 100%. Respiratory distress with respiratory rates in the 50s. Improved somewhat to the 30s although requiring sedation, lethargic. Currently cooperating with BiPAP. Multiple family members clear he would not want intubation and mechanical ventilation. As per discussion they are okay with starting remdesivir, discussed also risks possible benefits of Actemra. Ordered. Continue oxygen support. Wean down as tolerating. Check D-dimer, recheck level. Continue Lovenox VT prophylaxis. Appears more puffy than usual to his , with possibility of mild fluid overload with hypoxia will give dose of Lasix 20 mg IV x1, reassess response, intake and output, volume status. Given severity of his condition, high risk of mortality requested to be with him given they have been exposed to child already at home living together. She understands risk of transmission of infection. Agreeable to wear PPE. Status: Acute (2) AMS (altered mental status): Garcia placed. Noted urinary retention. Request UA. Hypoxic respiratory failure with severe COVID-19. Status: Acute (3) Hypothyroidism: Resume levothyroxine when able. Status: Acute Attestations Medical Necessity Statement*: Continue admission for management of hypoxic respiratory failure with severe COVID-19. Critical Care Time: The high probability of a clinically significant, sudden or life threatening deterioration of the patient's respiratory system(s) required my full and direct attention, intervention and personal management. The critical care time is as shown. This time is in addition to time spent performing any reported procedures but includes the following: x Data and vital sign review and interpretation x Patient assessment, examination and intervention x Documentation x Medication orders and management Critical Care Time (min): 45 Coding Level of Care Code Acute Activity Therapy Teacher for Kevin Fwd Diagnoses AMS (altered mental status) R41.82 Acute respiratory failure with hypoxia J96.01 Hypothyroidism E03.9
[2021-12-18] VITALS (18 sets, daily range): BP systolic 101–145; BP diastolic 54–67; PULSE 55–105; RESP 12–37; O2SAT 89–97
[2021-12-18] MEDS: ipratropium-albuterol 3 mL Neb INHALATION ×6 (00:51→20:25)
[2021-12-18] MEDS: dexamethasone 4 mg/mL INJ 6 MG IVP (01:04)
[2021-12-18] MEDS: enoxaparin 40 mg/0.4 mL Syringe SUBCUT (01:04)
[2021-12-18] MEDS: cefepime 2,000 MG in sodium chloride 0.9% (plus) 50 ML 100 MG IV (01:05)
[2021-12-18] MEDS: dexmedeTOMIDine 0.9 % NaCL 400 MCG/100 ML PREMIX IV (01:20)
[2021-12-18 05:26] LABS: Basophils % 0.4 %; Hematocrit 48.2 % (42.0-52.0); Hemoglobin 15.7 g/dL (11.7-16.6); Lymphocytes # 0.4 10^3/uL (0.8-4.8); Lymphocytes % 6.6 %; Mean Corpuscular HGB Conc 32.6 g/dL (30.0-36.0); Mean Corpuscular Hemoglobin 30.2 pg (28.0-34.0); Mean Corpuscular Volume 92.7 fl (80-94); Mean Platelet Volume 11.6 fL (7.4-10.4); Monocytes # 0.4 10^3/uL (0.2-0.9); Monocytes % 7.9 %; Neutrophils # 4.65 10^3/uL (1.8-7.7); Neutrophils % 83.5 %; Nucleated Red Blood Cells % 0 %; Platelet Count 121 10^3/cmm (130-400); Red Cell Distribution Width 13.8 % (12.1-15.1); White Blood Count 5.6 10^3/uL (4.0-10.0)
[2021-12-18 05:37] LABS: Alanine Aminotransferase 22 U/L (0-41); Albumin Level 3.1 g/dL (3.5-5.2); Alkaline Phosphatase 83 IU/L (40-130); Anion Gap 16.7 (5-19); Aspartate Amino Transferase 41 U/L (0-40); Blood Urea Nitrogen 19 mg/dL (8-23); Carbon Dioxide 20 mmol/L (22-29); Chloride 104 mmol/L (98-107); Ferritin 516 ng/mL (30-400); Globulin 3.4 g/dL (1.3-4.6); Glucose 205 mg/dL (65-115); Osmolality Calculated 290 mOsm/kg (285-295); Potassium 4.7 mmol/L (3.5-5.1); Sodium 136 mmol/L (136-145); Total Bilirubin 0.5 mg/dL (0.15-1.2); Total Protein 6.5 g/dL (6.6-8.7)
[2021-12-18 05:43] LABS: Slide Review Slide Review Perform
[2021-12-18 09:54] LABS: Urine Appearance Clear (CLEAR); Urine Color Dark Yellow (Yellow); pH Urine 5 (5-7)
[2021-12-18 09:55] LABS: Add Urine Microscopic? YES; Bilirubin Urine Neg (Negative); Blood Urine Neg (Negative); Glucose Urine UA 4+ (Normal); Ketones Urine 1+ (Negative); Leukocyte Esterase Urine Negative (Negative); Nitrate Urine Negative (Negative); Protein Urine 1+ (Negative); Specific Gravity, Urine 1.025 (1.005-1.030); Urobilinogen Urine 1 mg/dL (Negative)
[2021-12-18 09:57] LABS: Bacteria Urine 1+ /hpf; Coarse Granular Casts Urine 0-4 /lpf; Mucus Urine 1+ /hpf; RBC Urine 15-25 /hpf (0-2)
[2021-12-18 09:58] LABS: Add Urine Culture? Yes
[2021-12-18 13:15] LABS: Fibrinogen 710 mg/dL (174-498)
[2021-12-18 13:18] LABS: D Dimer 1.65 ug/mIFEU (0-0.59)
[2021-12-18 13:34] LABS: Erythrocyte Sedimentation Rate 57 mm/hr (0-10)
--- NOTE | 2021-12-18 18:16 | CTR_ITS ---
PROCEDURE INFORMATION: Exam: CT Abdomen And Pelvis Without Contrast Exam date and time: 12/18/2021 6:16 PM Age: 71 years old Clinical indication: Fever and other: Hematuria; Patient HX: Covid+ w fever and hematuria; Additional info: UTI, hematuria, sepsis. Assess for obstruction TECHNIQUE: Imaging protocol: Computed tomography of the abdomen and pelvis without contrast. Radiation optimization: All CT scans at this facility use at least one of these dose optimization techniques: automated exposure control; mA and/or kV adjustment per patient size (includes targeted exams where dose is matched to clinical indication); or iterative reconstruction. COMPARISON: CR (CHEST, ) 12/16/2021 8:19 PM RADIATION DOSE METRICS: Total DLP (mGy-cm): 1249.91 FINDINGS: Lungs: Patchy ground-glass parenchymal airspace change bilaterally. Liver: Normal. No mass. Gallbladder and bile ducts: Normal. No calcified stones. No ductal dilation. Pancreas: Normal. No ductal dilation. Spleen: Normal. No splenomegaly. Adrenal glands: Normal. No mass. Kidneys and ureters: Normal. No hydronephrosis. Stomach and bowel: Unremarkable. No obstruction. No mucosal thickening. Appendix: No evidence of appendicitis. Intraperitoneal space: Trace pelvic free fluid without loculation no free air. Vasculature: Unremarkable. No abdominal aortic aneurysm. Lymph nodes: Unremarkable. No enlarged lymph nodes. Urinary bladder: Garcia catheter is present in the bladder. Bladder is decompressed and otherwise not well assessed. Reproductive: Mild severity prostatomegaly. Symmetric size of the seminal vesicles. Small nodular hyperdense structure within the right seminal vesicle measures 13 mm transverse of uncertain etiology. Bones/joints: Unremarkable. No acute fracture. Soft tissues: Unremarkable. CT/CT kidney stone [id number] IMPRESSION: 1. Negative for acute abdominopelvic pathology. 2. Nonspecific lower lung ground-glass airspace. 3. No specific cause of hematuria identified. 4. Imaging features can be seen with COVID-19 pneumonia, though are nonspecific and can occur with a variety of infectious and noninfectious processes. (Reference: Josiah) REFERENCES: karina Law al., Radiological Society of [place] Expert Consensus Statement on Reporting Chest CT Findings Related to COVID-19. Endorsed by the Society of Thoracic Radiology, the [place] [employer], and RSNA. Published February 05, 2020.
--- NOTE | 2021-12-18 19:14 | PM.PN ---
Subjective Subjective: Interval history: More awake today during my visit, squeezing hands on command, following other basic instructions. Denies pain. Continuing to wake up more through the day. Vitals/I&O/Wt Last Vital Signs Temp 102.8 F H 12/16/21 22:23 Pulse 105 H 12/18/21 16:21 Resp 24 H 12/18/21 16:21 BP 116/67 12/18/21 16:00 Pulse Ox 96 12/18/21 16:21 12/18/21 12/18/21 12/18/21 06:59 14:59 22:59 Intake Total 144.43 / 792.852 27.005 / 27.005 Output Total 550 / 550 Balance 144.43 / -707.148 27.005 / 27.005 -550 / -522.995 Weight last 48 hrs Weight 131.088 kg Physical Exam Narrative: EXAM NARRATIVE: at bedside Const: GENERAL APPEARANCE: lethargic ORIENTATION/CONSCIOUSNESS: Yes lethargic OTHER: Still lethargic but waking up more, responsive BiPAP HENMT: COMMON NORMALS: oropharynx normal Neck/C-Spine: COMMON NORMALS: no JVD Resp: COMMON NORMALS: normal respiratory effort and clear to auscultation bilaterally AUSCULTATION: clear to auscultation bilaterally Cardio: COMMON NORMALS: no JVD, regular rhythm, S1 normal heart sound present, S2 normal heart sound present and No murmurs present (Cardio) RHYTHM: regular rhythm HEART SOUNDS: S1 normal heart sound present and S2 normal heart sound present GI: COMMON NORMALS: Normal to inspection, nondistended, normoactive bowel sounds present, Soft to palpation and non-tender PALPATION: Yes Soft to palpation Extremity: COMMON NORMALS: no joint enlargement and no pedal edema Neuro: COMMON NORMALS: moves all extremities SENSORIUM/ORIENTATION: Yes lethargic Skin: COMMON NORMALS: no rashes or lesions noted GENERAL SKIN EXAM: no rashes or lesions noted Urinary Catheter Management: Garcia: Cath Placed During This Visit: yes Reason for Continuing Indwelling Catheter: Accurate Measurement of Urinary Output in Critically Ill Patients Urinary Catheter Date of Insertion: 12/17/21 Urinary Catheter Time of Insertion: 17:25 Data : 12/18/21 04:43 12/18/21 04:43 Micro: Microbiology 12/17/21 17:27 Bacterial Antigens - Final Urine,Clean Catch 12/16/21 01:26 Blood Culture - Preliminary Blood NEGATIVE TO DATE 12/16/21 01:28 Blood Culture - Preliminary Blood NEGATIVE TO DATE A&P Assessment and plan (1) Acute respiratory failure with hypoxia: Showing gradual improvement, today down to 70% FiO2, subsequently down as low as 55%. Remains calm. Weaned off of Precedex. Trial of heated high flow cannula. As she has been doing better, transfer changed to medical floor. Received Actemra. Status: Acute (2) AMS (altered mental status): Garcia placed. Noted urinary retention. I am told there was a sample available, but no result, resource another. Possible UTI. Noted microscopic hematuria as well. Requesting renal stone protocol CT. Continue empiric cefepime. Acute encephalopathy secondary to hypoxic respiratory failure with severe COVID-19, also possible UTI. Sips and chips, if does well, trial of clear liquids. Status: Acute (3) Hypothyroidism: Resume levothyroxine when able. Status: Acute Attestations Medical Necessity Statement*: Continue admission for assessment of management of hypoxic respiratory failure with severe COVID-19. Coding Level of Care Code Acute Teacher Early Childhood Development for [facility] Diagnoses Acute respiratory failure with hypoxia J96.01 AMS (altered mental status) R41.82 Hypothyroidism E03.9
[2021-12-18] MEDS: morphine 4 mg/mL SDV 1 mL 1 MG IVP (21:59)
[2021-12-19] VITALS (19 sets, daily range): BP systolic 123–162; BP diastolic 76–87; PULSE 74–99; RESP 15–24; TEMP 36.6–37.1; O2SAT 89–96
--- NOTE | 2021-12-19 00:28 | PC.NURSE ---
Patient moved from ER to Med 260 via bed by KALLIE Hearn. Report received by this RN prior to patient's arrival. Patient assisted by respiratory on heated high flow and is currently on 35 and 30% FiO2. He denies any pain at this time. Skin and physical assessment conducted on arrival
[2021-12-19] MEDS: ipratropium-albuterol 3 mL Neb INHALATION ×6 (00:37→19:55)
[2021-12-19] MEDS: cefepime 2,000 MG in sodium chloride 0.9% (plus) 50 ML 100 MG IV ×3 (02:03→23:20)
[2021-12-19] MEDS: enoxaparin 40 mg/0.4 mL Syringe SUBCUT (02:07)
[2021-12-19] MEDS: dexamethasone 4 mg/mL INJ 6 MG IVP ×2 (02:07→23:20)
[2021-12-19 06:58] LABS: Hematocrit 40.4 % (42.0-52.0); Lymphocytes # 0.2 10^3/uL (0.8-4.8); Lymphocytes % 3.2 %; Mean Corpuscular HGB Conc 32.2 g/dL (30.0-36.0); Mean Corpuscular Hemoglobin 30.3 pg (28.0-34.0); Mean Corpuscular Volume 94.2 fl (80-94); Monocytes # 0.3 10^3/uL (0.2-0.9); Monocytes % 3.3 %; Neutrophils # 7.01 10^3/uL (1.8-7.7); Nucleated Red Blood Cells % 0 %; Platelet Count 221 10^3/cmm (130-400); Red Blood Count 4.29 10^6/uL (4.1-5.3); Red Cell Distribution Width 14.1 % (12.1-15.1); White Blood Count 7.5 10^3/uL (4.0-10.0)
[2021-12-19 07:19] LABS: D Dimer 2.25 ug/mIFEU (0-0.59)
[2021-12-19 07:23] LABS: Erythrocyte Sedimentation Rate 48 mm/hr (0-10)
[2021-12-19 09:27] LABS: Alanine Aminotransferase 29 U/L (0-41); Albumin Level 3.1 g/dL (3.5-5.2); Alkaline Phosphatase 80 IU/L (40-130); Anion Gap 17.1 (5-19); Aspartate Amino Transferase 60 U/L (0-40); Blood Urea Nitrogen 25 mg/dL (8-23); C Reactive Protein 29.4 mg/L (0.0-4.9); Calcium 8.6 mg/dL (8.5-10.5); Carbon Dioxide 18 mmol/L (22-29); Chloride 108 mmol/L (98-107); Ferritin 386 ng/mL (30-400); Globulin 3.2 g/dL (1.3-4.6); Glucose 139 mg/dL (65-115); Osmolality Calculated 295 mOsm/kg (285-295); Potassium 4.1 mmol/L (3.5-5.1); Sodium 139 mmol/L (136-145); Total Bilirubin 0.5 mg/dL (0.15-1.2); Total Protein 6.3 g/dL (6.6-8.7)
[2021-12-19] MEDS: zinc gluconate 50 mg Tablet PO (10:17)
[2021-12-19] MEDS: ascorbic acid 500 mg Tablet 1000 MG PO ×2 (10:17→17:07)
--- NOTE | 2021-12-19 17:47 | P.PN_ITS ---
Subjective Subjective: Interval history: Feels he is improving. Denies pain or discomfort, although later his does say his legs have been getting sore. Breathing feels comfortable on heated high flow. Denies cough. No nausea vomiting or diarrhea. Vitals/I&O/Wt Last Vital Signs Temp 98.1 F 12/19/21 16:00 Pulse 76 12/19/21 16:00 Resp 18 12/19/21 16:00 BP 124/76 12/19/21 16:00 Pulse Ox 94 12/19/21 16:00 12/19/21 12/19/21 12/19/21 06:59 14:59 22:59 Intake Total 50 / 77.005 50 / 50 Output Total 550 / 1100 Balance -500 / -1022.995 50 / 50 Weight last 48 hrs Weight 76.476 kg Physical Exam Narrative: EXAM NARRATIVE: Very [place] Const: GENERAL APPEARANCE: lethargic ORIENTATION/CONSCIOUSNESS: Yes lethargic HENMT: COMMON NORMALS: oropharynx normal Neck/C-Spine: COMMON NORMALS: no JVD Resp: COMMON NORMALS: normal respiratory effort and clear to auscultation bilaterally AUSCULTATION: clear to auscultation bilaterally Cardio: COMMON NORMALS: no JVD, regular rhythm, S1 normal heart sound present, S2 normal heart sound present and No murmurs present (Cardio) RHYTHM: regular rhythm HEART SOUNDS: S1 normal heart sound present and S2 normal heart sound present GI: COMMON NORMALS: Normal to inspection, nondistended, normoactive bowel sounds present, Soft to palpation and non-tender PALPATION: Yes Soft to palpation Extremity: COMMON NORMALS: no joint enlargement and no pedal edema Neuro: COMMON NORMALS: moves all extremities SENSORIUM/ORIENTATION: Yes lethargic Skin: COMMON NORMALS: no rashes or lesions noted GENERAL SKIN EXAM: no rashes or lesions noted Urinary Catheter Management: Garcia: Cath Placed During This Visit: yes Reason for Continuing Indwelling Catheter: Accurate Measurement of Urinary Output in Critically Ill Patients Urinary Catheter Date of Insertion: 12/17/21 Urinary Catheter Time of Insertion: 17:25 Data : 12/19/21 06:16 12/19/21 08:32 Micro: Microbiology 12/18/21 09:25 Urine Culture - Preliminary Urine,Clean Catch A&P Assessment and plan (1) Acute respiratory failure with hypoxia: Gradually improving. Down to 55% FiO2 today. Continue Decadron, remdesivir. Oxygen support. Wean down as tolerating. Supportive care. Received Actemra. Status: Acute (2) AMS (altered mental status): Garcia placed. Noted urinary retention. I am told there was a sample available, but no result, resource another. Possible UTI. Noted microscopic hematuria as well. No obstruction/stone on renal stone protocol CT. Continue empiric cefepime. Follow-up urine culture. So far no growth. If continues to do well, no growth, consider de-escalating antibiotic. Improving acute encephalopathy secondary to hypoxic respiratory failure with severe COVID-19, also possible UTI. 8 full liquids well. Advance to mechanical soft diet. Status: Acute (3) Hypothyroidism: Resume levothyroxine Status: Acute Attestations Medical Necessity Statement*: Continue admission for assessment management of hypoxic respiratory failure with severe COVID-19. Coding Level of Care Code Acute Sap Pi Architect for Kevin Turner Diagnoses Acute respiratory failure with hypoxia J96.01 AMS (altered mental status) R41.82 Hypothyroidism E03.9
--- NOTE | 2021-12-19 17:51 | PC.NURSE ---
OK PER DR. FINCH FOR PTS TO COME IN AND VISIT HIM DAILY PER VISITING HOURS.
[2021-12-20] VITALS (20 sets, daily range): BP systolic 116–177; BP diastolic 67–88; PULSE 78–90; RESP 16–22; TEMP 36.3–36.7; O2SAT 86–95
[2021-12-20] MEDS: ipratropium-albuterol 3 mL Neb INHALATION ×7 (00:27→23:22)
[2021-12-20] MEDS: enoxaparin 40 mg/0.4 mL Syringe SUBCUT (05:50)
--- NOTE | 2021-12-20 06:41 | PC.NURSE ---
0515 Went in to check on patient (hourly rounding) Patient had O2 cannula off / was refusing to put back on. Patient kept repeating I am / would not follow commands or answer questions. Charge nurse Valentina/ hospitalist Dr Randall and RT notified. After much prompting patient did state name and . Was able to answer orientation questions and was willing to follow commands. O2 35/55 sats 92%. Continuous pulse ox applied per protocol. Neuro check WNL. Carol was also updated on patient condition.
[2021-12-20 06:47] LABS: Basophils % 0.1 %; Hematocrit 42.4 % (42.0-52.0); Hemoglobin 13.8 g/dL (11.7-16.6); Lymphocytes # 0.3 10^3/uL (0.8-4.8); Lymphocytes % 3.7 %; Mean Corpuscular HGB Conc 32.5 g/dL (30.0-36.0); Mean Corpuscular Volume 92.2 fl (80-94); Mean Platelet Volume 10.4 fL (7.4-10.4); Monocytes # 0.3 10^3/uL (0.2-0.9); Monocytes % 3.9 %; Neutrophils # 7.51 10^3/uL (1.8-7.7); Neutrophils % 90.7 %; Nucleated Red Blood Cells % 0 %; Platelet Count 303 10^3/cmm (130-400); Red Cell Distribution Width 13.7 % (12.1-15.1); White Blood Count 8.3 10^3/uL (4.0-10.0)
[2021-12-20 07:01] LABS: Erythrocyte Sedimentation Rate 43 mm/hr (0-10)
[2021-12-20 07:04] LABS: Alanine Aminotransferase 54 U/L (0-41); Albumin Level 3.6 g/dL (3.5-5.2); Alkaline Phosphatase 112 IU/L (40-130); Anion Gap 17.5 (5-19); Aspartate Amino Transferase 106 U/L (0-40); Blood Urea Nitrogen 25 mg/dL (8-23); Carbon Dioxide 21 mmol/L (22-29); Chloride 107 mmol/L (98-107); Glucose 161 mg/dL (65-115); Osmolality Calculated 300 mOsm/kg (285-295); Potassium 4.5 mmol/L (3.5-5.1); Sodium 141 mmol/L (136-145); Total Bilirubin 0.8 mg/dL (0.15-1.2); Total Protein 6.6 g/dL (6.6-8.7)
[2021-12-20 07:47] LABS: C Reactive Protein 13.2 mg/L (0.0-4.9); Ferritin 348 ng/mL (30-400)
[2021-12-20] MEDS: zinc gluconate 50 mg Tablet PO (08:24)
[2021-12-20] MEDS: ascorbic acid 500 mg Tablet 1000 MG PO ×2 (08:24→17:26)
[2021-12-20] MEDS: levothyroxine 112 mcg Tablet PO (08:24)
[2021-12-20] MEDS: cefepime 2,000 MG in sodium chloride 0.9% (plus) 50 ML 100 MG IV ×2 (12:21→23:21)
[2021-12-20] MEDS: acetaminophen 325 mg Tablet 650 MG PO ×2 (12:33→18:26)
--- NOTE | 2021-12-20 15:00 | PM.PN ---
Subjective Subjective: continues on 55% fi02 at 30lpm, states feeling less dyspneic today, worked with PT today, sat in chair for few hrs Vitals/I&O/Wt Last Vital Signs Temp 98.0 F 12/20/21 20:00 Pulse 80 12/20/21 23:29 Resp 18 12/20/21 23:23 BP 158/83 12/20/21 20:00 Pulse Ox 91 12/20/21 23:23 12/20/21 12/20/21 12/21/21 14:59 22:59 06:59 Intake Total 450 / 450 120 / 570 Balance 450 / 450 120 / 570 Weight last 48 hrs Weight 76.476 kg Physical Exam Narrative: GEN: Awake, alert and oriented, no acute distress CVS: S1S2 N RS: CTA B/L Abd: Soft, nt/nd , bs+ MINING ANALYST: no focal neuro deficits Urinary Catheter Management: Garcia: Cath Placed During This Visit: yes Reason for Continuing Indwelling Catheter: Other Urinary Catheter Date of Insertion: 12/17/21 Urinary Catheter Time of Insertion: 17:25 Data : 12/20/21 05:57 12/20/21 05:57 Micro: Microbiology 12/18/21 09:25 Urine Culture - Final Urine,Clean Catch A&P Assessment and plan (1) Acute respiratory failure with hypoxia: continues to be on heated hi flow 55% FiO2 at 30lpm today. Continue Decadron Patient and his refused treatment with remdesivir, has not received subsequent doses since 12/17. concerned about side effects of remdisivir based on her research. Unwilling to continue further doses. Received Actemra. Continue nebulization Status: Acute (2) AMS (altered mental status): Garcia placed. Noted urinary retention. Continue empiric cefepime for possible UTI Follow-up urine culture. So far no growth. If continues to do well, no growth, consider de-escalating antibiotic. Improving acute encephalopathy secondary to hypoxic respiratory failure with severe COVID-19, also possible UTI. Status: Acute (3) Hypothyroidism: Resume levothyroxine Status: Acute Attestations Medical Necessity Statement*: ongoing treatment for COVID 19, needs titration of oxygen down to NC prior to considering discharge home Coding Level of Care Code Acute Clinical Project Assistant for Kevin Turner Diagnoses Acute respiratory failure with hypoxia J96.01 AMS (altered mental status) R41.82 Hypothyroidism E03.9
[2021-12-20] MEDS: dexamethasone 4 mg/mL INJ 6 MG IVP (23:21)
[2021-12-21] VITALS (19 sets, daily range): BP systolic 144–165; BP diastolic 79–86; PULSE 71–89; RESP 16–22; TEMP 36.3–36.8; O2SAT 88–96
[2021-12-21] MEDS: ipratropium-albuterol 3 mL Neb INHALATION ×5 (03:12→20:00)
[2021-12-21 06:08] LABS: Basophils % 0.1 %; Hematocrit 40.8 % (42.0-52.0); Hemoglobin 13.5 g/dL (11.7-16.6); Lymphocytes # 0.4 10^3/uL (0.8-4.8); Lymphocytes % 3.9 %; Mean Corpuscular HGB Conc 33.1 g/dL (30.0-36.0); Mean Corpuscular Hemoglobin 30.1 pg (28.0-34.0); Mean Corpuscular Volume 90.9 fl (80-94); Mean Platelet Volume 10.1 fL (7.4-10.4); Monocytes # 0.4 10^3/uL (0.2-0.9); Monocytes % 4.1 %; Neutrophils # 8.54 10^3/uL (1.8-7.7); Neutrophils % 90.4 %; Nucleated Red Blood Cells % 0 %; Platelet Count 318 10^3/cmm (130-400); Red Blood Count 4.49 10^6/uL (4.1-5.3); Red Cell Distribution Width 13.3 % (12.1-15.1); White Blood Count 9.5 10^3/uL (4.0-10.0)
[2021-12-21 06:31] LABS: Alanine Aminotransferase 86 U/L (0-41); Albumin Level 3.4 g/dL (3.5-5.2); Alkaline Phosphatase 119 IU/L (40-130); Anion Gap 13.9 (5-19); Aspartate Amino Transferase 106 U/L (0-40); Blood Urea Nitrogen 24 mg/dL (8-23); Calcium 7.7 mg/dL (8.5-10.5); Carbon Dioxide 20 mmol/L (22-29); Chloride 106 mmol/L (98-107); Globulin 2.8 g/dL (1.3-4.6); Glucose 189 mg/dL (65-115); Osmolality Calculated 289 mOsm/kg (285-295); Potassium 4.9 mmol/L (3.5-5.1); Sodium 135 mmol/L (136-145); Total Bilirubin 0.8 mg/dL (0.15-1.2); Total Protein 6.2 g/dL (6.6-8.7)
--- NOTE | 2021-12-21 09:40 | PC.SOCIAL ---
IMM UPDATED IMM dated and initialed and copy given to patient.
[2021-12-21] MEDS: bisacodyl 5 mg Tablet 10 MG PO (09:50)
[2021-12-21] MEDS: levothyroxine 112 mcg Tablet PO (09:51)
[2021-12-21] MEDS: zinc gluconate 50 mg Tablet PO (09:52)
[2021-12-21] MEDS: ascorbic acid 500 mg Tablet 1000 MG PO ×2 (09:52→18:12)
[2021-12-21] MEDS: cefepime 2,000 MG in sodium chloride 0.9% (plus) 50 ML 100 MG IV (12:36)
--- NOTE | 2021-12-21 18:36 | PM.PN ---
Subjective Subjective: Continues to be on heated high flow, 47% 30 L/min. No new complaints today. Last CRP down to 13. Ambulating in the room. However does starts to desaturate to 80% on current settings with minimal exertion from bed to bedside commode. lost IV access today, will try to convert all medications to p.o. Vitals/I&O/Wt Last Vital Signs Temp 97.3 F L 12/21/21 08:00 Pulse 82 12/21/21 17:42 Resp 20 H 12/21/21 17:33 BP 165/84 12/21/21 08:00 Pulse Ox 91 12/21/21 17:33 12/21/21 12/21/21 12/21/21 06:59 14:59 22:59 Intake Total 50 / 620 50 / 50 Output Total 800 / 800 Balance -750 / -180 50 / 50 Physical Exam Narrative: GEN: Awake, alert and oriented, no acute distress CVS: S1S2 N RS: CTA B/L Abd: Soft, nt/nd , bs+ OPERATING SYSTEM DESIGNER: no focal neuro deficits Urinary Catheter Management: Garcia: Cath Placed During This Visit: yes Reason for Continuing Indwelling Catheter: Other Urinary Catheter Date of Insertion: 12/17/21 Urinary Catheter Time of Insertion: 17:25 Data : 12/21/21 05:51 12/21/21 05:51 A&P Assessment and plan (1) Acute respiratory failure with hypoxia: continues to be on heated hi flow 47% FiO2 at 30lpm today. Continue Decadron, change to po as no iv access currently Patient and his refused treatment with remdesivir, has not received subsequent doses since 12/17. concerned about side effects of remdisivir based on her research. Unwilling to continue further doses. Received Actemra x1 . Continue nebulization with duoneb, add budesonide inhalation Status: Acute (2) AMS (altered mental status): Garcia placed. Noted urinary retention. Change cefepime to empiric levaquin Follow-up urine culture. So far no growth. Attempt to remove Garcia and watch for urinary retention Status: Acute (3) Hypothyroidism: Resume levothyroxine Status: Acute Attestations Medical Necessity Statement*: COVID pneumonia, continues to be on heated high flow, needs to be weaned down prior to be able to leave the hospital as cannot be replicated at home. Coding Level of Care Code Acute Fire Official for Chg Fwd Diagnoses Acute respiratory failure with hypoxia J96.01 AMS (altered mental status) R41.82 Hypothyroidism E03.9
[2021-12-21] MEDS: budesonide 0.5 mg/2 mL Neb INHALATION (20:01)
[2021-12-22] VITALS (16 sets, daily range): BP systolic 125–148; BP diastolic 73–87; PULSE 61–93; RESP 12–24; TEMP 36.6–37; O2SAT 85–95
[2021-12-22] MEDS: ipratropium-albuterol 3 mL Neb INHALATION ×6 (00:19→21:17)
--- NOTE | 2021-12-22 04:49 | PC.NURSE ---
i reported low 02 88 to nurse
[2021-12-22 07:35] LABS: Basophils % 0.2 %; Eosinophils # 0.1 10^3/uL (0.0-0.8); Eosinophils % 0.6 %; Hematocrit 45.4 % (42.0-52.0); Hemoglobin 14.9 g/dL (11.7-16.6); Lymphocytes # 0.6 10^3/uL (0.8-4.8); Lymphocytes % 4.7 %; Mean Corpuscular HGB Conc 32.8 g/dL (30.0-36.0); Mean Corpuscular Volume 91.3 fl (80-94); Mean Platelet Volume 9.9 fL (7.4-10.4); Monocytes # 0.5 10^3/uL (0.2-0.9); Monocytes % 4.1 %; Neutrophils # 10.48 10^3/uL (1.8-7.7); Neutrophils % 88.8 %; Nucleated Red Blood Cells % 0 %; Platelet Count 372 10^3/cmm (130-400); Red Blood Count 4.97 10^6/uL (4.1-5.3); Red Cell Distribution Width 13.6 % (12.1-15.1); White Blood Count 11.8 10^3/uL (4.0-10.0)
[2021-12-22 07:46] LABS: D Dimer 2.09 ug/mIFEU (0-0.59)
[2021-12-22] MEDS: budesonide 0.5 mg/2 mL Neb INHALATION ×2 (07:58→21:17)
[2021-12-22 08:04] LABS: Alanine Aminotransferase 70 U/L (0-41); Albumin Level 3.5 g/dL (3.5-5.2); Alkaline Phosphatase 113 IU/L (40-130); Anion Gap 16.7 (5-19); Aspartate Amino Transferase 38 U/L (0-40); Blood Urea Nitrogen 30 mg/dL (8-23); C Reactive Protein 2.4 mg/L (0.0-4.9); Carbon Dioxide 17 mmol/L (22-29); Chloride 106 mmol/L (98-107); Globulin 2.9 g/dL (1.3-4.6); Glucose 125 mg/dL (65-115); Osmolality Calculated 288 mOsm/kg (285-295); Potassium 4.7 mmol/L (3.5-5.1); Sodium 135 mmol/L (136-145); Total Bilirubin 0.6 mg/dL (0.15-1.2); Total Protein 6.4 g/dL (6.6-8.7)
[2021-12-22] MEDS: ascorbic acid 500 mg Tablet 1000 MG PO ×2 (11:11→18:32)
[2021-12-22] MEDS: zinc gluconate 50 mg Tablet PO (11:12)
[2021-12-22] MEDS: levothyroxine 112 mcg Tablet PO (11:12)
[2021-12-22] MEDS: dexamethasone 4 mg Tablet PO (11:12)
[2021-12-22] MEDS: levoFLOXacin 750 mg Tablet PO (11:12)
--- NOTE | 2021-12-22 12:44 | PC.SOCIAL ---
IMM update IMM updated with patient. Verbalized an understanding. Initialled, dated, timed, and placed in chart.
--- NOTE | 2021-12-22 16:52 | CTR_ITS ---
PROCEDURE INFORMATION: Exam: CTA Chest With Contrast Exam date and time: 12/22/2021 4:52 PM Age: 71 years old Clinical indication: Dyspnea; Additional info: Evaluate for pe TECHNIQUE: Imaging protocol: Computed tomographic angiography of the chest with contrast. 3D rendering (Not supervised by radiologist): MIP and/or 3D reconstructed images were created by the technologist. Radiation optimization: All CT scans at this facility use at least one of these dose optimization techniques: automated exposure control; mA and/or kV adjustment per patient size (includes targeted exams where dose is matched to clinical indication); or iterative reconstruction. Contrast material: [id number]; Contrast volume: 67 ml; Contrast route: INTRAVENOUS (IV); COMPARISON: 1. CR (CHEST, ) 12/16/2021 8:19 PM 2. CR XR chest 1V portable [id number] 06/01/2020 9:[address] cervical spin wo con* [id number] 06/01/2020 9:18 PM RADIATION DOSE METRICS: Total DLP (mGy-cm): 558.24 FINDINGS: Pulmonary arteries: The pulmonary arteries are adequately opacified for evaluation to the subsegmental level. There is no filling defect to suggest embolism. Aorta: There is moderate aortic atherosclerotic disease. Lungs: There is extensive upper lung predominant reticular and ground-glass opacity. Lung bases are spared. There is mild upper lung predominant centrilobular emphysema. Pleural spaces: Unremarkable. No pneumothorax. No pleural effusion. Heart: Heart size is normal. There is no pericardial effusion. There is severe coronary artery calcification. Lymph nodes: There is no mediastinal or hilar lymphadenopathy. Intraperitoneal space: Visible structures in the upper abdomen are unremarkable. Bones/joints: Bones are unremarkable. Soft tissues: There is a partially imaged circumscribed subdermal cyst in the anterior left upper chest wall measuring 8.[address]/CT angio chest PE protcl [id number] IMPRESSION: 1. No pulmonary embolism. 2. Moderate severity bilateral lung disease characterized by upper lung predominant reticular and ground-glass opacities. Findings are progressive since 2019. Findings suggest subacute or chronic interstitial lung disease, possibly hypersensitivity pneumonitis. Atypical or viral infection cannot be excluded. 3. Well-defined subdermal cyst in the upper left chest wall measuring up to 8.3 cm diameter.
--- NOTE | 2021-12-22 17:28 | PM.PN ---
Subjective Subjective: Continues to be on heated high flow, 50% FiO2, 30 L/min. No significant change in oxygen requirements today. Desaturates to 85% with minimal exertion. Slightly tachypneic with respiratory rate of 22 today. CRP normalized today at 2.4. D-dimer trending up. Vitals/I&O/Wt Last Vital Signs Temp 98.6 F 12/22/21 16:00 Pulse 89 12/22/21 16:14 Resp 22 H 12/22/21 16:14 BP 125/73 12/22/21 16:00 Pulse Ox 90 12/22/21 16:14 12/22/21 12/22/21 12/22/21 06:59 14:59 22:59 Output Total 550 / 550 Balance -550 / -500 Physical Exam Narrative: GEN: Awake, alert and oriented, no acute distress although appears to be more tachypneic today than previous exams. CVS: S1S2 N RS: CTA B/L Abd: Soft, nt/nd , bs+ INVENTORY CONTROL COORDINATOR: no focal neuro deficits Urinary Catheter Management: Garcia: Cath Placed During This Visit: yes Reason for Continuing Indwelling Catheter: Other Urinary Catheter Date of Insertion: 12/17/21 Urinary Catheter Time of Insertion: 17:25 Data : 12/22/21 07:22 12/22/21 07:22 Micro: Microbiology 12/16/21 01:26 Blood Culture - Final Blood NO GROWTH AFTER 5 DAYS 12/16/21 01:28 Blood Culture - Final Blood NO GROWTH AFTER 5 DAYS A&P Assessment and plan (1) Acute respiratory failure with hypoxia: continues to be on heated hi flow 50% FiO2 at 30lpm today. Continue Decadron, changed to po due to poor IV access Patient and his refused treatment with remdesivir, has not received subsequent doses since 12/17. concerned about side effects of remdisivir based on her research. Unwilling to continue further doses. Received Actemra x1 on 12/17 Continue nebulization with duoneb, add budesonide inhalation Using spirometer and Acapella. Patient continues to have high oxygen requirements, continues to be on heated high flow in spite of having a normalized CRP. D-dimer in the interim is continuing to trend up. Will perform a CTA chest to rule out PE as a contributing factor to persisting hypoxia. trial of lasix 20mg IV x1 today check echo to evalute for sytsolic and diastolic function Status: Acute (2) AMS (altered mental status): mentation now at baseline, likely encephalopathy precipiatted by acute viral infection Garcia placed. Noted urinary retention. Change cefepime to empiric levaquin Follow-up urine culture. So far no growth. Attempt to remove Garcia and watch for urinary retention Status: Acute (3) Hypothyroidism: Resume levothyroxine Status: Acute Attestations Medical Necessity Statement*: high 02 requirements, heated high flow, iv diuretics, treatment f severe COVID 19 Coding Level of Care Code Acute Process Development Engineer for Chg Fwd Diagnoses Acute respiratory failure with hypoxia J96.01 AMS (altered mental status) R41.82 Hypothyroidism E03.9
[2021-12-22] MEDS: FUROsemide 10 mg/mL SDV 2mL 20 MG IVP (18:32)
[2021-12-22] MEDS: iohexol 350 mg/mL 100 mL Btl IV (18:51)
--- NOTE | 2021-12-22 20:20 | PC.NURSE ---
i reported low 02 88 to nurse
[2021-12-22] MEDS: ALPRAZolam 0.5 mg Tablet PO (21:17)
[2021-12-22] MEDS: enoxaparin 40 mg/0.4 mL Syringe SUBCUT (22:46)
[2021-12-23] VITALS (12 sets, daily range): BP systolic 108–124; BP diastolic 69–76; PULSE 18–93; RESP 17–22; TEMP 36.4–36.7; O2SAT 83–93
[2021-12-23] MEDS: hyDROXYzine 25 mg Capsule PO (00:38)
[2021-12-23] MEDS: ipratropium-albuterol 3 mL Neb INHALATION ×4 (03:01→21:17)
[2021-12-23] MEDS: budesonide 0.5 mg/2 mL Neb INHALATION ×2 (09:33→21:17)
[2021-12-23] MEDS: ascorbic acid 500 mg Tablet 1000 MG PO ×2 (10:45→18:40)
[2021-12-23] MEDS: levothyroxine 112 mcg Tablet PO (10:46)
[2021-12-23] MEDS: zinc gluconate 50 mg Tablet PO (10:46)
[2021-12-23] MEDS: dexamethasone 4 mg Tablet PO (10:47)
[2021-12-23] MEDS: acetaminophen 325 mg Tablet 650 MG PO (10:47)
[2021-12-23] MEDS: levoFLOXacin 750 mg Tablet PO (10:47)
--- NOTE | 2021-12-23 11:40 | XR_ITS ---
WS: [id number] ABDOMEN 1 VIEW(S) HISTORY: upper abd pain COMPARISON: Survey localizer 12/18/2021 Increased amount of air throughout the colon. Increasing diameter of the ascending colon. There is al so increasing amount of fluid and distention of the small bowel although no obstruction is evident at this time. No suspicious calcifications identified. Increased density in the urinary bladder CT evaluations. No bone abnormality. XR/XR abdomen 1V* [id number] IMPRESSION: 1. Mild progression of fluid and distention of the small bowel loops but no ob struction at this time. 2. Increasing fecal material and distention of the RIGHT colon.
[2021-12-23] MEDS: magnesium citrate Btl 296 mL 148 ML PO (14:17)
[2021-12-23] MEDS: ondansetron 2 mg/ML SDV 2 mL 4 MG IVP (14:28)
--- NOTE | 2021-12-23 16:53 | USCV_ITS ---
Jose Diana Age: 71 Gender: M : 1950 Exam Date: 12/23/2021 07:45 Ordering Phys: Cee Dunaway MD Technologist: Exam Location: [facility] [place] Indication: CHF BP: 124 / 76 HR: 78 Rhythm: Sinus Technical Quality: Adequate MEASUREMENTS (Male / Female) Normal Values 2D ECHO LV Diastolic Diameter PLAX 3.2 cm 4.2 - 5.9 / 3.9 - 5.3 cm LV Systolic Diameter PLAX 2.4 cm IVS Diastolic Thickness 1.2 cm 0.6 - 1.0 / 0.6 - 0.9 cm IVS Systolic Thickness 1.2 cm LVPW Diastolic Thickness 1.3 cm 0.6 - 1.0 / 0.6 - 0.9 cm LVPW Systolic Thickness 1.4 cm LVOT Diameter 2.0 cm LV Ejection Fraction 2D Teich 41.7 % LV Ejection Fraction MOD 2C 65.8 % LV Ejection Fraction 2C AL 66.3 % LA Diameter 3.5 cm Aorta at Sinotubular Diameter 3.0 cm M-MODE Aortic Annulus Diameter 3.1 cm LA Ao Ratio MM 1.1 DOPPLER AV Peak Velocity 94.0 cm/s LVOT Peak Velocity 69.0 cm/s AV Area Cont Eq vti 2.0 cm squared AV Area Cont Eq pk 2.4 cm squared MV Area PHT 2.1 cm squared Mitral E to A Ratio 0.7 MV E' Velocity 26.0 cm/s Mitral E to MV E' Ratio 6.2 Mitral E to LV E' Lateral Ratio 5.7 Mitral E to LV E' Septal Ratio 7.0 TR Peak Velocity 186.0 cm/s TR Peak Gradient 13.8 mmHg TV Peak E Velocity 85.0 cm/s Right Atrial Pressure 3.0 mmHg Pulmonary Artery Systolic Pressu 16.8 mmHg FINDINGS Left Ventricle Normal left ventricular cavity size. Normal left ventricular systolic function. No regional wall motion abnormalities. Left ventricular ejection fraction is estimated at 60 %. Grade I/IV diastolic dysfunction (abnormal relaxation filling pattern), normal to mildly elevated filling pressures. Right Ventricle The right ventricle is normal in size and function. Right Atrium The right atrium is normal in size. Left Atrium The left atrium is normal in size. Mitral Valve Structurally normal mitral valve without significant stenosis or prolapse. There is no mitral regurgitation. Aortic Valve Structurally normal aortic valve without significant sclerosis or stenosis. There is no aortic regurgitation. Tricuspid Valve Structurally normal tricuspid valve without significant stenosis or regurgitation. Pulmonary artery systolic pressure is normal. Pulmonic Valve Structurally normal pulmonic valve without significant stenosis. There is no pulmonic regurgitation. Pericardium Normal pericardium without effusion. Aorta Normal ascending aorta dimension. CONCLUSIONS 1-Normal left ventricular cavity size. Normal left ventricular systolic function. No regional wall motion abnormalities. Left ventricular ejection fraction is estimated at 60 %. Grade I/IV diastolic dysfunction (abnormal relaxation filling pattern), normal to mildly elevated filling pressures. 2-No significant valve abnormalities. 3-There is no pericardial effusion. 4-Pulmonary artery systolic pressure is within normal limits. 5-Right atrial pressure is around 5 mm of mercury. 6-There are no prior echocardiogram studies to compare. Chicho Gonsales MD (Electronically Signed) Final Date: 23 December 2021 18:25 S
--- NOTE | 2021-12-23 17:54 | P.PN_ITS ---
Subjective Subjective: Complains of abdominal pain today. Had one episode of retching with clear spit. Has not had a bowel movement in 3 days. Abdominal x-ray was performed today due to complaints of abdominal pain, showed fecal impaction and possibly developing ileus. Remains on heated high flow, oxygen requirement slightly increased today FiO2 60%, 55 L/min. 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 Continue Decadron, changed to po due to poor IV access Patient and his refused treatment with remdesivir, has not received subsequent doses since 12/17. concerned about side effects of remdisivir based on her research. Unwilling to continue further doses. Received Actemra x1 on 12/17 Continue nebulization with duoneb, add budesonide inhalation Using spirometer and Acapella. Patient continues to have high oxygen requirements, continues to be on heated high flow in spite of having a normalized CRP. D-dimer in the interim is continuing to trend up. Will perform a CTA chest to rule out PE as a cont ributing factor to persisting hypoxia. trial of lasix 20mg IV x1 today check echo to evalute for sytsolic and diastolic function Status: Acute (2) AMS (altered mental status): mentation now at baseline, likely encephalopathy precipiatted by acute viral infection Garcia placed. Noted urinary retention. Change cefepime to empiric levaquin Follow-up urine culture. So far no growth. Attempt to remove Garcia and watch for urinary retention Status: Acute (3) Hypothyroidism: Resume levothyroxine Status: Acute Plan Plan for today: Pending echocardiogram. CTA negative for PE. Bilateral diffuse infiltrates consistent with Covid pneumonia. Slightly increased oxygen requirement today. Add mag citrate for fecal impaction. Protonix 40 mg p.o. twice daily additionally added. Attestations Medical Necessity Statement*: Continues to be on heated high flow, high oxygen requirements, under treatment for severe COVID-19 pneumonia. If continues to have persistently increasing oxygen requirements, will add baricitinib Coding Level of Care Code Acute Maintenance Specialist for Giannag Matteod Diagnoses Acute respiratory failure with hypoxia J96.01 AMS (altered mental status) R41.82 Hypothyroidism E03.9
[2021-12-23] MEDS: pantoprazole DR 40 mg Tablet PO (18:40)
[2021-12-23] MEDS: dexamethasone 10 mg/mL INJ 6 MG IVP (19:00)
[2021-12-23] MEDS: enoxaparin 40 mg/0.4 mL Syringe SUBCUT (22:17)
[2021-12-24] VITALS (17 sets, daily range): BP systolic 113–137; BP diastolic 72–91; PULSE 67–103; RESP 17–22; TEMP 36.4–36.7; O2SAT 87–94
[2021-12-24] MEDS: ipratropium-albuterol 3 mL Neb INHALATION ×6 (00:38→20:06)
[2021-12-24 06:30] LABS: Basophils % 0.5 %; Hematocrit 48.6 % (42.0-52.0); Hemoglobin 15.8 g/dL (11.7-16.6); Lymphocytes # 0.5 10^3/uL (0.8-4.8); Lymphocytes % 5.5 %; Mean Corpuscular HGB Conc 32.5 g/dL (30.0-36.0); Mean Corpuscular Hemoglobin 29.8 pg (28.0-34.0); Mean Corpuscular Volume 91.7 fl (80-94); Mean Platelet Volume 10.8 fL (7.4-10.4); Monocytes # 0.3 10^3/uL (0.2-0.9); Monocytes % 3.4 %; Neutrophils # 7.25 10^3/uL (1.8-7.7); Neutrophils % 86.8 %; Nucleated Red Blood Cells % 0 %; Platelet Count 374 10^3/cmm (130-400); Red Cell Distribution Width 13.8 % (12.1-15.1); White Blood Count 8.4 10^3/uL (4.0-10.0)
[2021-12-24 06:53] LABS: Alanine Aminotransferase 65 U/L (0-41); Albumin Level 3.5 g/dL (3.5-5.2); Alkaline Phosphatase 115 IU/L (40-130); Blood Urea Nitrogen 31 mg/dL (8-23); Calcium 9.5 mg/dL (8.5-10.5); Carbon Dioxide 20 mmol/L (22-29); Chloride 102 mmol/L (98-107); Globulin 3.4 g/dL (1.3-4.6); Glucose 127 mg/dL (65-115); Osmolality Calculated 286 mOsm/kg (285-295); Sodium 134 mmol/L (136-145); Total Bilirubin 0.6 mg/dL (0.15-1.2); Total Protein 6.9 g/dL (6.6-8.7)
[2021-12-24 06:58] LABS: Anion Gap 17.5 (5-19); Aspartate Amino Transferase 34 U/L (0-40); Potassium 5.5 mmol/L (3.5-5.1)
[2021-12-24 07:26] LABS: NT Pro B Type Natriuretic Pept 38 pg/mL (0-125)
[2021-12-24] MEDS: budesonide 0.5 mg/2 mL Neb INHALATION ×2 (07:52→20:06)
[2021-12-24] MEDS: pantoprazole DR 40 mg Tablet PO ×2 (09:06→17:27)
[2021-12-24] MEDS: lactulose oral liq 20 gm/30 mL UDC PO (09:06)
[2021-12-24] MEDS: levoFLOXacin 750 mg Tablet PO (09:06)
[2021-12-24] MEDS: ascorbic acid 500 mg Tablet 1000 MG PO ×2 (09:06→17:27)
[2021-12-24] MEDS: levothyroxine 112 mcg Tablet PO (09:07)
--- NOTE | 2021-12-24 17:37 | PM.PN ---
Subjective Subjective: patient has had 2 BM today and feels much more comfortbale in the abdomen. No further c/o abdominal pain. No vomtiing or emesis. States appetite has returned and wishes to advance diet from clears. Weaned down today from heated high flow 50% to HFNC at 15 lpm. 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: no focal neuro deficits Urinary Catheter Management: Garcia: Cath Placed During This Visit: yes Reason for Continuing Indwelling Catheter: Acute Urinary Retention or Obstruction Urinary Catheter Date of Insertion: 12/17/21 Urinary Catheter Time of Insertion: 17:25 Data : 12/24/21 05:57 12/24/21 05:57 Micro: Microbiology 12/22/21 22:50 MRSA Culture - Final Nose A&P Assessment and plan (1) Acute respiratory failure with hypoxia: Weaning down today to HFNC at 15pm from heated high flow Taret saturation >88% Continue Decadron 6mg IVP Patient and his refused treatment with remdesivir, has not received subsequent doses since 12/17. Received Actemra x1 on 12/17 Continue nebulization with duoneb, add budesonide inhalation Using spirometer and Acapella. CTA chest negative for PE 12/23 echo ?Left ventricular ejection fraction is estimated at 60 %. Grade I/IV diastolic dysfunction (abnormal relaxation filling pattern), ?normal to mildly elevated filling pressures. Lasix 20mg IVP again today Status: Acute (2) AMS (altered mental status): Status: Acute (3) Hypothyroidism: Resume levothyroxine Status: Acute Attestations Medical Necessity Statement*: titrating down 02 requirements, down from heated high flow to HFNC today, needs further weaning to be able to return home with home 02 Coding Level of Care Code Acute Treatment Plant Operator for Chg Fwd Diagnoses Acute respiratory failure with hypoxia J96.01 AMS (altered mental status) R41.82 Hypothyroidism E03.9
--- NOTE | 2021-12-24 18:15 | PC.SOCIAL ---
IMM update IMM updated with patient's . Verbalized an understanding. Initialled, dated, timed, and placed in chart.
[2021-12-24] MEDS: FUROsemide 10 mg/mL SDV 2mL 20 MG IVP (18:16)
[2021-12-24] MEDS: dexamethasone 10 mg/mL INJ 6 MG IVP (18:16)
[2021-12-24] MEDS: enoxaparin 40 mg/0.4 mL Syringe SUBCUT (23:22)
[2021-12-25] VITALS (18 sets, daily range): BP systolic 109–135; BP diastolic 72–84; PULSE 77–101; RESP 15–23; TEMP 36.5–36.8; O2SAT 84–93
[2021-12-25] MEDS: ipratropium-albuterol 3 mL Neb INHALATION ×7 (01:11→23:50)
[2021-12-25 07:12] LABS: Alanine Aminotransferase 50 U/L (0-41); Albumin Level 3.6 g/dL (3.5-5.2); Alkaline Phosphatase 124 IU/L (40-130); Anion Gap 16.4 (5-19); Aspartate Amino Transferase 23 U/L (0-40); Blood Urea Nitrogen 30 mg/dL (8-23); Calcium 8.2 mg/dL (8.5-10.5); Carbon Dioxide 23 mmol/L (22-29); Chloride 102 mmol/L (98-107); Globulin 2.6 g/dL (1.3-4.6); Glucose 237 mg/dL (65-115); Osmolality Calculated 298 mOsm/kg (285-295); Potassium 4.4 mmol/L (3.5-5.1); Sodium 137 mmol/L (136-145); Total Bilirubin 0.5 mg/dL (0.15-1.2); Total Protein 6.2 g/dL (6.6-8.7)
[2021-12-25] MEDS: pantoprazole DR 40 mg Tablet PO ×2 (08:35→17:47)
[2021-12-25] MEDS: ascorbic acid 500 mg Tablet 1000 MG PO ×2 (08:35→17:47)
[2021-12-25] MEDS: levothyroxine 112 mcg Tablet PO (08:36)
[2021-12-25] MEDS: levoFLOXacin 750 mg Tablet PO (08:36)
[2021-12-25] MEDS: budesonide 0.5 mg/2 mL Neb INHALATION ×2 (08:47→21:24)
--- NOTE | 2021-12-25 14:07 | PC.NURSE ---
hendricks catheter removed by Raiza Baez LPN on 12/23/21. papier mache' molder nurse removed at 0700, informed this nurse during report. intervention was not removed from the system with proper charting. this nurse charted hendricks out on pt with information received from night nurse to reflect accurately in the computer.
[2021-12-25] MEDS: dexamethasone 10 mg/mL INJ 6 MG IVP (17:25)
--- NOTE | 2021-12-25 17:38 | PM.PN ---
Subjective Subjective: No new complaints or acute events today. Continued attempts at weaning ongoing. Denies any abdominal pain. States dyspnea is slowly improving. 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 Urinary Catheter Management: Garcia: Cath Placed During This Visit: yes, but has since been removed by the nurse Reason for Continuing Indwelling Catheter: Other Urinary Catheter Date of Insertion: 12/17/21 Urinary Catheter Time of Insertion: 17:25 Date Urinary Catheter Removed: 12/23/21 Time Urinary Catheter Discontinued: 07:00 Data : 12/24/21 05:57 12/25/21 06:05 A&P Assessment and plan (1) Acute respiratory failure with hypoxia: Weaning down today to HFNC at 15pm from heated high flow Taret saturation >88% Continue Decadron 6mg IVP Patient and his refused treatment with remdesivir, has not received subsequent doses since 12/17. Received Actemra x1 on 12/17 Continue nebulization with duoneb, add budesonide inhalation Using spirometer and Acapella. CTA chest negative for PE 12/23 echo ?Left ventricular ejection fraction is estimated at 60 %. Grade I/IV diastolic dysfunction (abnormal relaxation filling pattern), ?normal to mildly elevated filling pressures. start lasix 40mg po daily Status: Acute (2) AMS (altered mental status): Status: Acute (3) Hypothyroidism: Resume levothyroxine Status: Acute Attestations Medical Necessity Statement*: COVID-19 pneumonia, attempts at weaning ongoing, needs to be trended down to about 6 to 8 L prior to discharge home so that it can be replicated at home. Coding Level of Care Code Acute Trimmer Buffing Wheel for Chg Fwd Diagnoses Acute respiratory failure with hypoxia J96.01 AMS (altered mental status) R41.82 Hypothyroidism E03.9
[2021-12-25] MEDS: FUROsemide 20 mg Tablet PO (17:46)
[2021-12-25] MEDS: enoxaparin 40 mg/0.4 mL Syringe SUBCUT (23:30)
[2021-12-26] VITALS (15 sets, daily range): BP systolic 114–147; BP diastolic 68–81; PULSE 69–107; RESP 17–88; TEMP 36.4–36.9; O2SAT 87–93
[2021-12-26] MEDS: ipratropium-albuterol 3 mL Neb INHALATION ×5 (03:43→23:47)
[2021-12-26] MEDS: FUROsemide 20 mg Tablet PO (08:45)
[2021-12-26] MEDS: levothyroxine 112 mcg Tablet PO (08:46)
[2021-12-26] MEDS: levoFLOXacin 750 mg Tablet PO (08:46)
[2021-12-26] MEDS: pantoprazole DR 40 mg Tablet PO ×2 (08:46→17:10)
[2021-12-26] MEDS: ascorbic acid 500 mg Tablet 1000 MG PO ×2 (08:46→17:12)
[2021-12-26] MEDS: budesonide 0.5 mg/2 mL Neb INHALATION (09:32)
--- NOTE | 2021-12-26 14:20 | PC.SOCIAL ---
IMM Update pg 2 of IMM updated and reviewed w/ patient and his . Copy provided and copy placed in chart.
--- NOTE | 2021-12-26 16:37 | XRR_ITS ---
PROCEDURE INFORMATION: Exam: XR Chest Exam date and time: 12/26/2021 4:37 PM Age: 71 years old Clinical indication: Other: Covid follow up; Additional info: F/up covid infiltrates TECHNIQUE: Imaging protocol: XR of the chest. Views: 1 view. COMPARISON: 1. CR (CHEST, ) 2021-12-16 20:[address] angio chest PE protcl [id number] 2021-12-22 18:51 3. CR XR chest 1V portable [id number] 2020-06-01 21:05 4. CR XR abdomen 1V* [id number] 2021-12-23 11:58 FINDINGS: Limitations: Limited by patient's body habitus. Lungs: More extensive and dense appearing diffuse lung opacities. Pleural spaces: Unremarkable. No pleural effusion. No pneumothorax. Heart/Mediastinum: Unremarkable. No cardiomegaly. Bones/joints: Unremarkable. XR/XR chest 1V portable [id number] IMPRESSION: More extensive and dense appearing diffuse lung opacities. Increased.
--- NOTE | 2021-12-26 16:41 | P.PN_ITS ---
Subjective Subjective: Oxygen saturation varying between 88 to 92%, currently on 10 L/min via reservior nasal cannula. Denies any dyspnea. Comfortable during conversation. Able to ambulate in the room. Eager to go home. 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 Today on 10lpm with reservior nasal canula. Target saturation >88% WIll give trial of increased steroids with methylpred 40mg iv q12h as appears to have additional underlying component of interstitial lung disease Patient and his refused treatment with remdesivir, has not received sub sequent doses since 12/17. Received Actemra x1 on 12/17 Continue nebulization with duoneb, add budesonide inhalation Using spirometer and Acapella. CTA chest negative for PE 12/23 echo ?Left ventricular ejection fraction is estimated at 60 %. Grade I/IV diastolic dysfunction (abnormal relaxation filling pattern), ?normal to mildly elevated filling pressures. repeat CXR today Status: Acute (2) AMS (altered mental status): resolved. 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
[2021-12-26] MEDS: enoxaparin 40 mg/0.4 mL Syringe SUBCUT (23:43)
--- NOTE | 2021-12-26 23:46 | PC.NURSE ---
i reported high pulse 101 to nurse
[2021-12-27] VITALS (10 sets, daily range): BP systolic 121–138; BP diastolic 68–78; PULSE 78–108; RESP 17–22; TEMP 36.7–36.9; O2SAT 89–94
[2021-12-27] MEDS: ipratropium-albuterol 3 mL Neb INHALATION ×6 (03:01→23:37)
[2021-12-27 06:05] LABS: Basophils % 0.3 %; Eosinophils % 0.1 %; Hematocrit 42.7 % (42.0-52.0); Hemoglobin 13.9 g/dL (11.7-16.6); Lymphocytes # 0.5 10^3/uL (0.8-4.8); Lymphocytes % 4.3 %; Mean Corpuscular HGB Conc 32.6 g/dL (30.0-36.0); Mean Corpuscular Hemoglobin 30.9 pg (28.0-34.0); Mean Corpuscular Volume 94.9 fl (80-94); Mean Platelet Volume 10.4 fL (7.4-10.4); Monocytes # 0.3 10^3/uL (0.2-0.9); Monocytes % 2.6 %; Neutrophils # 9.94 10^3/uL (1.8-7.7); Neutrophils % 90.8 %; Nucleated Red Blood Cells % 0 %; Platelet Count 318 10^3/cmm (130-400); Red Cell Distribution Width 13.8 % (12.1-15.1)
[2021-12-27 06:33] LABS: Alanine Aminotransferase 32 U/L (0-41); Albumin Level 3.4 g/dL (3.5-5.2); Alkaline Phosphatase 106 IU/L (40-130); Anion Gap 13.3 (5-19); Aspartate Amino Transferase 22 U/L (0-40); Blood Urea Nitrogen 22 mg/dL (8-23); Calcium 8.4 mg/dL (8.5-10.5); Carbon Dioxide 25 mmol/L (22-29); Chloride 104 mmol/L (98-107); Globulin 2.5 g/dL (1.3-4.6); Glucose 134 mg/dL (65-115); Osmolality Calculated 291 mOsm/kg (285-295); Potassium 4.3 mmol/L (3.5-5.1); Sodium 138 mmol/L (136-145); Total Bilirubin 0.4 mg/dL (0.15-1.2); Total Protein 5.9 g/dL (6.6-8.7)
[2021-12-27 06:36] LABS: Procalcitonin 0.12 ng/mL (0-0.5)
[2021-12-27] MEDS: budesonide 0.5 mg/2 mL Neb INHALATION ×2 (07:36→20:02)
--- NOTE | 2021-12-27 07:42 | PC.RESP ---
RT Shift Note Frequent safety and respiratory rounds continue. Orders completed as indicated. Patient monitored pre and post treatments throughout shift. Patient [Did.] tolerate treatments appropriately. Condition [.DidNotChange]. Patient and/or community engagement representative educated on respiratory treatment and medications. Patient and/or community engagement representative [verbalized understanding]. Will continue to monitor patient progress.
[2021-12-27] MEDS: FUROsemide 20 mg Tablet PO (08:27)
[2021-12-27] MEDS: ascorbic acid 500 mg Tablet 1000 MG PO ×2 (08:28→18:25)
[2021-12-27] MEDS: levothyroxine 112 mcg Tablet PO (08:28)
[2021-12-27] MEDS: pantoprazole DR 40 mg Tablet PO ×2 (08:28→18:25)
[2021-12-27] MEDS: levoFLOXacin 750 mg Tablet PO (08:28)
--- NOTE | 2021-12-27 12:31 | PM.PN ---
Subjective Subjective: Patient was seen and examined this morning supplemental oxygen requirement has continued to go down, clinically patient is doing much better, denies any shortness of breath, cough, compliant with spirometer and flutter valve. No other acute events overnight. Medications: Reviewed: Yes Medication Review Details: Generic Name Dose Route Start Last Admin Trade Name Freq PRN Reason Stop Dose Admin Acetaminophen 650 mg 12/16/21 23:04 12/23/21 10:47 Acetaminophen 32 5 Mg Tablet PO 650 mg Q6H PRN Administration Mild/Mod Pain Or Temp >/= 101 Albuterol/Ipratrop ium 3 ml 12/17/21 00:00 12/27/21 15:14 Ipratropium-Albu terol 3 Ml Neb INHALATION 3 ml Q4H.RESPIRATORY S CH Administration Ascorbic Acid 1,000 mg 12/17/21 09:00 12/27/21 08:28 Ascorbic Acid 50 0 Mg Tablet PO 1,000 mg BID CARMEN Administration Bisacodyl 10 mg 12/16/21 23:04 12/21/21 09:50 Bisacodyl 5 Mg T ablet PO 10 mg DAILY PRN Administration Constipation (see protocol) Protocol Budesonide 0.5 mg 12/21/21 20:00 12/27/21 07:36 Budesonide 0.5 M g/2 Ml Neb INHALATION 0.5 mg BID.RESPIRATORY S CH Administration Enoxaparin Sodium 40 mg 12/16/21 23:15 12/26/21 23:43 Enoxaparin 40 Mg /0.4 Ml Syringe SUBCUT 40 mg Q24H CARMEN Administration Furosemide 20 mg 12/25/21 17:40 12/27/21 08:27 Furosemide 20 Mg Tablet PO 20 mg DAILY@0800 CARMEN Administration Levofloxacin 750 mg 12/22/21 09:00 12/27/21 08:28 Levofloxacin 750 Mg Tablet PO 750 mg DAILY CARMEN Administration Protocol Levothyroxine Sodi um 112 mcg 12/20/21 09:00 12/27/21 08:28 Levothyroxine 11 2 Mcg Tablet PO 112 mcg DAILY CARMEN Administration Methylprednisolone Sodium Succinate 40 mg 12/26/21 16:45 12/27/21 05:33 Methylprednisolo ne Sod Succ 40 Mg/ Ml Inj IVP 40 mg Q12H CARMEN Administration Ondansetron HCl 4 mg 12/16/21 23:04 12/23/21 14:28 Ondansetron 2 Mg /Ml Sdv 2 Ml IVP 4 mg Q8H PRN Administration vomiting, or N/V if npo Pantoprazole Sodiu m 40 mg 12/23/21 18:00 12/27/21 08:[address] 40 Mg Tablet PO 40 mg BID CARMEN Administration Zinc Gluconate 50 mg 12/17/21 09:00 12/23/21 10:46 Zinc Gluconate 5 0 Mg Tablet PO 50 mg DAILY CARMEN Administration Vitals/I&O/Wt Last Vital Signs Temp 98.2 F 12/27/21 07:40 Pulse 88 12/27/21 11:24 Resp 20 H 12/27/21 11:24 BP 130/68 12/27/21 07:40 Pulse Ox 94 12/27/21 11:24 12/26/21 12/27/21 12/27/21 22:59 06:59 14:59 Intake Total 240 / 1200 480 / 480 Output Total 360 / 360 220 / 580 Balance -120 / 840 -220 / 620 480 / 480 Physical Exam Const: COMMON NORMALS: patient oriented x3 HENMT: COMMON NORMALS: normocephalic, atraumatic and external ears normal HEAD & SCALP: normocephalic and atraumatic EXTERNAL EAR: Yes external ears normal Eye: COMMON NORMALS: no scleral icterus GENERAL EYE: appearance normal, both eyes and all related structures Chest: COMMONS NORMALS: normal inspection of the chest and normal palpation of entire chest wall CHEST: Yes Symmetrical chest wall rise Resp: EFFORT & INSPECTION: Yes symmetric chest movement AUSCULTATION: diminished lung sounds OTHER: Tachypneic, use of accessory respiratory muscles. Labored breathing Cardio: COMMON NORMALS: regular rate, regular rhythm, S1 normal heart sound present, S2 normal heart sound present, No gallops present (Cardio), No murmurs present (Cardio), No rub (Cardio) and Peripheral pulses 2+ throughout RATE: regular rate RHYTHM: regular rhythm HEART SOUNDS: S1 normal heart sound present and S2 normal heart sound present PERIPHERAL PULSES: Peripheral pulses 2+ throughout GI: COMMON NORMALS: Normal to inspection, nondistended, normoactive bowel sounds present, Soft to palpation, non-tender, No hepatosplenomegaly present and no masses AUSCULTATION: Yes normoactive bowel sounds PALPATION: Yes Soft to palpation and Yes No hepatosplenomegaly present RECTAL EXAM: Yes deferred Extremity: COMMON NORMALS: no clubbing, cyanosis or edema and no pedal edema Neuro: COMMON NORMALS: patient oriented x3 Urinary Catheter Management: Garcia: Cath Placed During This Visit: yes, but has since been removed by the nurse Reason for Continuing Indwelling Catheter: Other Urinary Catheter Date of Insertion: 12/17/21 Urinary Catheter Time of Insertion: 17:25 Date Urinary Catheter Removed: 12/23/21 Time Urinary Catheter Discontinued: 07:00 Data : 12/27/21 05:46 12/27/21 05:46 A&P Assessment and plan (1) Acute respiratory failure with hypoxia: Continued attempts at weaning 02 to the point which can be replicated at home. Today on 10lpm with reservior nasal canula. Target saturation >88% WIll give trial of increased steroids with methylpred 40mg iv q12h as appears to have additional underlying component of interstitial lung disease Patient and his refused treatment with remdesivir, has not received subsequent doses since 12/17. Received Actemra x1 on 12/17 Continue nebulization with duoneb, add budesonide inhalation Using spirometer and Acapella. CTA chest negative for PE 12/23 echo ?Left ventricular ejection fraction is estimated at 60 %. Grade I/IV diastolic dysfunction (abnormal relaxation filling pattern), ?normal to mildly elevated filling pressures. repeat CXR today Status: Acute (2) AMS (altered mental status): resolved. At baseline currently Status: Acute (3) Hypothyroidism: Resume levothyroxine Status: Acute Attestations Medical Necessity Statement*: Patient needs to be in hospital for management of pneumonia. Coding Level of Care Code Acute Docketing Specialist for Chg Fwd Exam Comprehensive Diagnoses Acute respiratory failure with hypoxia J96.01 AMS (altered mental status) R41.82 Hypothyroidism E03.9
--- NOTE | 2021-12-27 13:50 | PC.NURSE ---
Notified RT Peg that Dr Randall wants to titrate patient's oxygen so patient can go home tomorrow. He said he would like him to be around 5-6L
[2021-12-28] VITALS (8 sets, daily range): BP systolic 125–157; BP diastolic 67–87; PULSE 87–104; RESP 17–23; TEMP 36.4–36.8; O2SAT 85–92
[2021-12-28] MEDS: ipratropium-albuterol 3 mL Neb INHALATION ×2 (02:32→08:08)
[2021-12-28 06:33] LABS: Basophils % 0.1 %; Hematocrit 38.5 % (42.0-52.0); Hemoglobin 12.6 g/dL (11.7-16.6); Lymphocytes # 0.5 10^3/uL (0.8-4.8); Mean Corpuscular HGB Conc 32.7 g/dL (30.0-36.0); Mean Corpuscular Hemoglobin 30.3 pg (28.0-34.0); Mean Corpuscular Volume 92.5 fl (80-94); Mean Platelet Volume 10.6 fL (7.4-10.4); Monocytes # 0.6 10^3/uL (0.2-0.9); Monocytes % 5.5 %; Neutrophils % 88.5 %; Nucleated Red Blood Cells % 0 %; Platelet Count 308 10^3/cmm (130-400); Red Blood Count 4.16 10^6/uL (4.1-5.3); Red Cell Distribution Width 13.8 % (12.1-15.1); White Blood Count 11.3 10^3/uL (4.0-10.0)
[2021-12-28 06:51] LABS: Blood Urea Nitrogen 18 mg/dL (8-23); Carbon Dioxide 25 mmol/L (22-29); Chloride 103 mmol/L (98-107); Glucose 160 mg/dL (65-115); Osmolality Calculated 291 mOsm/kg (285-295); Sodium 138 mmol/L (136-145)
[2021-12-28] MEDS: budesonide 0.5 mg/2 mL Neb INHALATION (08:08)
[2021-12-28] MEDS: levothyroxine 112 mcg Tablet PO (09:01)
[2021-12-28] MEDS: FUROsemide 20 mg Tablet PO (09:01)
[2021-12-28] MEDS: levoFLOXacin 750 mg Tablet PO (09:01)
[2021-12-28] MEDS: ascorbic acid 500 mg Tablet 1000 MG PO (09:01)
[2021-12-28] MEDS: pantoprazole DR 40 mg Tablet PO (09:01)
--- NOTE | 2021-12-28 09:18 | PM.DCS ---
Discharge Providers Date of Admission: 12/17/21 00:07 Date of Discharge: December 28, 2021 Attending Provider at Admission: Regis Randall MD Attending Provider at Discharge: Regis Randall MD Primary Care Provider: Jeremi Talavera Jr, MD Diagnoses at Discharge Discharge Diagnosis (1) Acute respiratory failure with hypoxia: Status: Acute (2) AMS (altered mental status): Status: Acute (3) Hypothyroidism: Status: Acute Reason for Visit Reason for Visit: sob Hospital Course Hospital Course 71 year old male with past medical history of hypothyroidism, came in with chief complaint of worsening shortness of breath, he was admitted for the management of acute hypoxic respiratory failure secondary to Covid pneumonia, he was kept on Covid protocol, pertinent imaging studies included CTA chest; negative for pulmonary embolism, Moderate severity bilateral lung disease characterized by upper lung predominant reticular and ground-glass opacities. Findings are progressive since 2019. Findings suggest subacute or chronic interstitial lung disease, possibly hypersensitivity pneumonitis. Atypical or viral infection cannot be excluded.2D echo??Left ventricular ejection fraction is estimated at 60 %. Grade I/IV diastolic dysfunction (abnormal relaxation filling pattern), ?normal to mildly elevated filling pressures. Patient was continued on dexamethasone he also received 1 dose of tocilizumab Patient was not agreeable for remdesivir hence it was discontinued after 1 dose, inflammatory markers were trended incentive spirometer and flutter valves were used, he was continued on other conservative respiratory support measures. At the time of discharge he was requiring 5 to 6 L of oxygen through pendant, he was discharged on budesonide and Advair inhaler, as well as prednisone 40 mg p.o. daily for additional 5 days, patient was continued on thyroxine for hypothyroidism. Patient responded well to above medical management and was discharged in stable condition to home. He will continue to follow primary care physician as an outpatient. Physical Exam Const: COMMON NORMALS: patient oriented x3 HENMT: COMMON NORMALS: normocephalic, atraumatic, hearing grossly normal bilaterally and external ears normal HEAD & SCALP: normocephalic and atraumatic EXTERNAL EAR: Yes external ears normal Eye: COMMON NORMALS: no scleral icterus GENERAL EYE: appearance normal, both eyes and all related structures Chest: COMMONS NORMALS: normal inspection of the chest and normal palpation of entire chest wall CHEST: Yes Symmetrical chest wall rise Resp: COMMON NORMALS: normal respiratory effort, No retractions, No use of accessory muscles and clear to auscultation bilaterally EFFORT & INSPECTION: Yes symmetric chest movement AUSCULTATION: clear to auscultation bilaterally OTHER: Diminished air entry bilaterally Cardio: COMMON NORMALS: regular rate, regular rhythm, S1 normal heart sound present, S2 normal heart sound present, No gallops present (Cardio), No murmurs present (Cardio), No rub (Cardio) and Peripheral pulses 2+ throughout RATE: regular rate RHYTHM: regular rhythm HEART SOUNDS: S1 normal heart sound present and S2 normal heart sound present PERIPHERAL PULSES: Peripheral pulses 2+ throughout GI: COMMON NORMALS: Normal to inspection, nondistended, normoactive bowel sounds present, Soft to palpation, non-tender, No hepatosplenomegaly present and no masses AUSCULTATION: Yes normoactive bowel sounds PALPATION: Yes Soft to palpation and Yes No hepatosplenomegaly present RECTAL EXAM: Yes deferred Extremity: COMMON NORMALS: no clubbing, cyanosis or edema and no pedal edema Neuro: COMMON NORMALS: patient oriented x3 Urinary Catheter Management: Garcia: Cath Placed During This Visit: yes, but has since been removed by the nurse Reason for Continuing Indwelling Catheter: Other Urinary Catheter Date of Insertion: 12/17/21 Urinary Catheter Time of Insertion: 17:25 Date Urinary Catheter Removed: 12/23/21 Time Urinary Catheter Discontinued: 07:00 Discharge Data Studies Completed and Pending Completed Studies During Hospitalization Category Date Time Status CT kidney stone [id number] Routine Cat Scan 12/18/21 18:16 Completed CTA chest [CT angio chest PE protcl [id number]] Routine Cat Scan 12/22/21 16:52 Completed CXRP [XR chest 1V portable [id number]] Routine Exams 12/26/21 16:37 Completed XR abdomen 1V* [id number] Stat Exams 12/23/21 11:40 Completed XR chest 1V portable [id number] Urgent Exams 12/16/21 19:33 Completed CV. echo complete* [id number] Routine Ultrasound 12/23/21 16:53 Completed Pending at discharge Category Date Time Status Sputum Culture and Gram Stain Routine Lab 12/26/21 23:15 Results Radiology Impressions Abdomen/Pelvis CT 12/18/21 18:16 IMPRESSION: 1. Negative for acute abdominopelvic pathology. 2. Nonspecific lower lung ground-glass airspace. 3. No specific cause of hematuria identified. 4. Imaging features can be seen with COVID-19 pneumonia, though are nonspecific and can occur with a variety of infectious and noninfectious processes. (Reference: Josiah) REFERENCES: Josiah Eckert, et al., Radiological Society of [place] Expert Consensus Statement on Reporting Chest CT Findings Related to COVID-19. Endorsed by the Society of Thoracic Radiology, the [place] [employer], and RSNA. Published February 05, 2020. Chest CTA 12/22/21 16:52 IMPRESSION: 1. No pulmonary embolism. 2. Moderate severity bilateral lung disease characterized by upper lung predominant reticular and ground-glass opacities. Findings are progressive since 2020. Findings suggest subacute or chronic interstitial lung disease, possibly hypersensitivity pneumonitis. Atypical or viral infection cannot be excluded. 3. Well-defined subdermal cyst in the upper left chest wall measuring up to 8.3 cm diameter. Abdomen X-Ray 12/23/21 11:40 IMPRESSION: 1. Mild progression of fluid and distention of the small bowel loops but no obstruction at this time. 2. Increasing fecal material and distention of the RIGHT colon. Chest X-Ray 12/26/21 16:37 IMPRESSION: More extensive and dense appearing diffuse lung opacities. Increased. Laboratory Results WBC 11.3 10^3/uL (4.0-10.0) H 12/28/21 06:05 RBC 4.16 10^6/uL (4.1-5.3) 12/28/21 06:05 Hgb 12.6 g/dL (11.7-16.6) 12/28/21 06:05 Hct 38.5 % (42.0-52.0) L 12/28/21 06:05 MCV 92.5 fl (80-94) 12/28/21 06:05 MCH 30.3 pg (28.0-34.0) 12/28/21 06:05 MCHC 32.7 g/dL (30.0-36.0) 12/28/21 06:05 RDW 13.8 % (12.1-15.1) 12/28/21 06:05 Plt Count 308 10^3/cmm (130-400) 12/28/21 06:05 MPV 10.6 fL (7.4-10.4) H 12/28/21 06:05 Neut % (Auto) 88.5 % 12/28/21 06:05 Lymph % (Auto) 4.0 % 12/28/21 06:05 Beadle % (Auto) 5.5 % 12/28/21 06:05 Eos % (Auto) 0.0 % 12/28/21 06:05 Baso % (Auto) 0.1 % 12/28/21 06:05 Neut # (Auto) 10.00 10^3/uL (1.8-7.7) H 12/28/21 06:05 Lymph # (Auto) 0.5 10^3/uL (0.8-4.8) L 12/28/21 06:05 Beadle # (Auto) 0.6 10^3/uL (0.2-0.9) 12/28/21 06:05 Eos # (Auto) 0.0 10^3/uL (0.0-0.8) 12/28/21 06:05 Baso # (Auto) 0.0 10^3/uL (0.0-0.1) 12/28/21 06:05 Nucleated RBC % (auto) 0 % 12/28/21 06:05 Nucleated RBCs # 0.0 /100WBC 12/28/21 06:05 ESR 43 mm/hr (0-10) H 12/20/21 05:57 Fibrinogen 710 mg/dL (174-498) H 12/18/21 12:52 D-Dimer 1.10 ug/mIFEU (0-0.59) H 12/27/21 05:46 Specimen Type Arterial 12/16/21 20:16 Sample Site Radial, right 12/16/21 20:16 ABG pH 7.47 (7.35-7.45) H 12/16/21 20:16 ABG pCO2 28.7 mmHg (35-45) L 12/16/21 20:16 ABG pO2 58.0 mmHg (80.0-100.0) L 12/16/21 20:16 ABG HCO3 20.9 mmol/L (22-26) L 12/16/21 20:16 ABG Base Excess -1.7 mmol/L (-2.0-2.0) 12/16/21 20:16 Octaviano Test Pos 12/16/21 20:16 Hematocrit 41.3 % (42-52) L 12/16/21 20:16 Hgb O2 Saturation 90.2 % (95-100) L 12/16/21 20:16 Carboxyhemoglobin 0.9 %THgb (0.4-20.1) 12/16/21 20:16 Methemoglobin 0.6 % (0.4-1.5) 12/16/21 20:16 Total Hemoglobin 13.5 g/dL (14-18) L 12/16/21 20:16 O2 Delivery Device Nrb 12/16/21 20:16 O2 Liters/Min 15.0 % 12/16/21 20:16 FiO2 100.0 % 12/16/21 20:16 Research Laboratory Manager ID Hensa 12/16/21 20:16 Sodium 138 mmol/L (136-145) 12/28/21 06:05 Potassium 4.0 mmol/L (3.5-5.1) 12/28/21 06:05 Chloride 103 mmol/L (98-107) 12/28/21 06:05 Carbon Dioxide 25 mmol/L (22-29) 12/28/21 06:05 Anion Gap 14.0 (5-19) 12/28/21 06:05 BUN 18 mg/dL (8-23) 12/28/21 06:05 Creatinine 0.9 mg/dL (0.7-1.2) 12/28/21 06:05 GFR Calculation Not Reportable 12/28/21 06:05 Glucose 160 mg/dL (65-115) H 12/28/21 06:05 Calculated Osmolality 291 mOsm/kg (285-295) 12/28/21 06:05 Calcium 8.0 mg/dL (8.5-10.5) L 12/28/21 06:05 Ferritin 348 ng/mL (30-400) 12/20/21 05:57 Total Bilirubin 0.4 mg/dL (0.15-1.2) 12/27/21 05:46 AST 22 U/L (0-40) 12/27/21 05:46 ALT 32 U/L (0-41) 12/27/21 05:46 Alkaline Phosphatase 106 IU/L (40-130) 12/27/21 05:46 Troponin T Baseline 9 ng/L (0-15) 12/16/21 19:42 Troponin T 120 Minute 10.26 ng/L (0-15) 12/16/21 21:45 Delta Troponin T 1.26 ABS# (0-10) 12/16/21 21:45 Troponin T Hi Sens 6Hr 11.65 ng/L (0-15) 12/17/21 01:28 Troponin T Hi Sens 6Hr Delta 2.65 ng/L (0-12) 12/17/21 01:28 C-Reactive Protein 3.0 mg/L (0.0-4.9) 12/27/21 05:46 NT-Pro-B Natriuret Pep 38 pg/mL (0-125) 12/24/21 05:57 Total Protein 5.9 g/dL (6.6-8.7) L 12/27/21 05:46 Albumin 3.4 g/dL (3.5-5.2) L 12/27/21 05:46 Globulin 2.5 g/dL (1.3-4.6) 12/27/21 05:46 Procalcitonin 0.12 ng/mL (0-0.5) 12/27/21 05:46 TSH 1.41 uIU/mL (0.27-4.20) 12/16/21 19:42 Urine Color Dark yellow (Yellow) 12/18/21 09:25 Urine Appearance Clear (CLEAR) 12/18/21 09:25 Urine pH 5 (5-7) 12/18/21 09:25 Ur Specific Hensley 1.025 (1.005-1.030) 12/18/21 09:25 Urine Protein 1+ (Negative) H 12/18/21 09:25 Urine Glucose (UA) 4+ (Normal) H 12/18/21 09:25 Urine Ketones 1+ (Negative) H 12/18/21 09:25 Urine Blood Neg (Negative) 12/18/21 09:25 Urine Nitrate Negative (Negative) 12/18/21 09:25 Urine Bilirubin Neg (Negative) 12/18/21 09:25 Urine Urobilinogen 1 mg/dL (Negative) H 12/18/21 09:25 Ur Leukocyte Esterase Negative (Negative) 12/18/21 09:25 Urine RBC 15-25 /hpf (0-2) H 12/18/21 09:25 Urine WBC 5-10 /hpf (0-5) H 12/18/21 09:25 Ur Squamous Epith Cells None /hpf (0-5) 12/18/21 09:25 Amorphous Sediment Not Reportable 12/18/21 09:25 Urine Bacteria 1+ /hpf (NONE) H 12/18/21 09:25 Coarse Granular Casts 0-4 /lpf H 12/18/21 09:25 Urine Mucus 1+ /hpf 12/18/21 09:25 Coronavirus 229E (PCR) Not detected (NOT DETECT) 12/16/21 19:30 SARS-CoV-2 (PCR) Detected (NOT DETECT) A 12/16/21 19:30 Vitals Last Vital Signs Temp 98.0 F 12/28/21 08:00 Pulse 94 12/28/21 08:17 Resp 20 H 12/28/21 08:08 BP 125/67 12/28/21 08:00 Pulse Ox 89 L 12/28/21 08:08 Discharge Plan Discharge Patient Disposition: Home Condition: Stable Prescriptions: New budesonide 180 mcg/actuation aerosol powdr breath activated 1 inh inhalation BID Qty: 1 3RF prednisone 20 mg tablet 40 mg PO BID 5 Days Qty: 20 0RF Advair Diskus 100-50 mcg/dose blister with device 1 inh inhalation BID Qty: 60 3RF Continued Synthroid 112 mcg Tablet 112 mcg PO DAILY 0RF Discontinued ascorbic acid (vitamin C) [Vitamin C] 500 mg Tablet 500 mg PO BID 0RF Discharge Orders: Discharge Order (Routine); Ordered 12/28/21 Ordered By: Regis Randall Other Ambulatory Orders: DME: Oxygen (Order) Location: None Selected Ordered By: Regis Randall Referrals: Faith Francis MD [Staff Physician] - 01/11/22 11:00 am (Needs referral for Certified Rehabilitation Counselor in [place]) Discharge Diet: Regular Discharge Activity: Increase activity as tolerated Patient Instructions: Prednisone (By mouth), Budesonide (By breathing), Fluticasone (Into the nose), Using Oxygen at Home (GEN), COVID-19 (Coronavirus Disease 2019) (DC), Opioid Safety Discharge Attestations Time Spent in Discharge Care*: greater than 30 min Specific Discharge Activities: educating patient, educating and/or supporting family/caregiver, discussing with pcp/other providers, discussing with piano case and bench assembler/social workers/dc planners, documenting/other paperwork and evaluating patient/reviewing data Quality Metrics Clinical Quality Measures [ No reported AMI, CVA or VTE this stay] Coding Level of Care Code Acute Chg FW DC note Diagnoses Acute respiratory failure with hypoxia J96.01 AMS (altered mental status) R41.82 Hypothyroidism E03.9
--- NOTE | 2021-12-28 09:46 | PC.NURSE ---
notified MOHAMUD Mancia that patient wants [facility] for home oxygen
--- NOTE | 2021-12-28 11:08 | PC.SOCIAL ---
IMM Update Pg. 2of IMM Updated and reviewed with patient's over the phone.
--- NOTE | 2021-12-28 11:21 | PC.NURSE ---
discharge instructions given to patient and . both verbalized understanding of instructions. patient waiting on home oxygen to be delivered.
--- NOTE | 2021-12-28 12:05 | PC.NURSE ---
patient taken to private vehicle via wheelchair by staff.
== END 2021-12-28 12:06 | disposition home or self-care (01) | DRG 177 ==
LOC: ER 22:24 → ER IP 12-17 17:59 → MEDSURG 12-19 19:42 → ER IP 12-21 06:12 → MEDSURG 12-21 06:12
PROVIDERS: Internal Medicine; Student in an Organized Health Care Education/Training Program; Admitting Provider Internal Medicine; Emergency Provider Emergency Medicine; PCP Family Medicine; Visit Provider Internal Medicine
DX: U07.1 COVID-19 (principal); J12.82 Pneumonia due to coronavirus disease 2019; J96.01 Acute respiratory failure with hypoxia; G93.40 Encephalopathy, unspecified; E86.0 Dehydration; E03.9 Hypothyroidism, unspecified; R33.9 Retention of urine, unspecified; R31.29 Other microscopic hematuria; K59.00 Constipation, unspecified
CPT/HCPCS: 36415; 36600; 51702; 71045; 71275; 74018; 74176; 80048; 80053; 81001; 82728; 82805; 83880; 84145; 84443; 84484; 85025; 85378; 85384; 85651; 86140; 86403; 87040; 87070; 87086; 87205; 87635; 87641; 92523; 92526; 92610; 93005; 93306; 94640; 94660; 94664; 96365; 96366; 96367; 96372; 96375; 96376; 97110; 97116; 97162; 97530; 99291; J0692; J1100; J1630; J1650; J1940; J2060; J2270; J2405; J2920; J3262; J7040; J7626; J8540; Q9967

== ENCOUNTER → 2022-03-28 13:42 | Outpatient (BNVA) | payer OTHER, SELFPAY | PROVIDERS: PCP Emergency Medicine Emergency Medical Services; Visit Provider Otolaryngology | DX: H61.21 Impacted cerumen, right ear (principal) | CPT/HCPCS: 69210; 99202 ==

== ENCOUNTER → 2023-10-23 08:29 | Outpatient (BNVA) | payer MEDICARE, SELFPAY | PROVIDERS: PCP Emergency Medicine Emergency Medical Services; Visit Provider Family Medicine | DX: Z13.6 Encounter for screening for cardiovascular disorders (principal); I10 Essential (primary) hypertension; E03.9 Hypothyroidism, unspecified | CPT/HCPCS: 80053; 80061; 83036 ==

== ENCOUNTER → 2024-03-18 07:44 | Outpatient (BNVA) | payer MEDICARE, SELFPAY | PROVIDERS: PCP Family Medicine; Visit Provider Family Medicine | DX: E03.9 Hypothyroidism, unspecified (principal); I10 Essential (primary) hypertension; Z13.6 Encounter for screening for cardiovascular disorders; I20.89 Other forms of angina pectoris | CPT/HCPCS: 80053; 80061; 84443 ==

== ENCOUNTER → 2024-08-30 10:23 | Outpatient (BNVA) | payer MEDICARE, SELFPAY | PROVIDERS: PCP Family Medicine; Visit Provider Family Medicine | DX: I10 Essential (primary) hypertension (principal); E03.9 Hypothyroidism, unspecified | CPT/HCPCS: 80053; 80061 ==

== ENCOUNTER → 2025-03-10 08:39 | Outpatient (BNVA) | payer MEDICARE, SELFPAY | PROVIDERS: PCP Family Medicine; Visit Provider Family Medicine | DX: I10 Essential (primary) hypertension (principal); E03.9 Hypothyroidism, unspecified; I20.89 Other forms of angina pectoris | CPT/HCPCS: 80053; 80061; 84443; 85025 ==

== ENCOUNTER → 2025-09-29 11:40 | Outpatient (BNVA) | payer MEDICARE, SELFPAY | PROVIDERS: PCP Family Medicine; Visit Provider Family Medicine | DX: I10 Essential (primary) hypertension (principal); E03.9 Hypothyroidism, unspecified; R06.00 Dyspnea, unspecified; J84.9 Interstitial pulmonary disease, unspecified | CPT/HCPCS: 80053; 80061; 84443; 85025 ==